=== PATIENT | male | born 1950 | race Caucasian/White ===

== ENCOUNTER 2019-07-22 21:41 | Emergency (ER) | payer OTHER, MEDICARE, BC ==
[~2019-07-22] VITALS: Ht 185.4 cm; Wt 81.6 kg
[2019-07-22 22:49] VITALS: BP 129/70
[2019-07-22] MEDS ORDERED: HYDR-3164 PO (23:02)
[2019-07-22] MEDS ORDERED: METH-38 PO (23:02)
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
== END 2019-07-22 23:10 | disposition home or self-care (01) ==
LOC: ER 21:41
DX: G89.18 Other acute postprocedural pain (principal); M25.572 Pain in left ankle and joints of left foot; I10 Essential (primary) hypertension
CPT/HCPCS: 99284

== ENCOUNTER → 2019-08-31 | Outpatient (CLI) | payer MEDICARE ==
[2019-07-31 11:00] VITALS: BP 141/82
[~2019-08-31] MED LIST: HYDR-3164 PO; METH-38 PO; PANT20TA2 PO; RIVA15TA PO
[2019-08-31 13:17] LABS: PROTHROMBIN TIME PATIENT 23.1 SEC (11.7-14.0)
--- NOTE | 2019-08-31 14:55 | RAD ---
VENOUS LOWER EXTREMITY LEFT 08/31/2019 1:00 PM Clinical Information: History of left lower extremity deep venous thrombosis. Comparison: Left lower extremity venous ultrasound 07/30/2019. Technique: Multiple grayscale, color Doppler, and spectral Doppler sonographic images of the lower extremity venous structures were obtained. Findings: Common femoral vein and greater saphenous vein are patent at the saphenofemoral junction. There is persistent occlusive thrombus involving a paired left superficial femoral vein extending to the popliteal vein. There is nonocclusive thrombus in the distal left popliteal vein. Persistent nonocclusive thrombus and a left posterior tibial vein. Peroneal veins are not visualized. IMPRESSION: Persistent left lower extremity DVT with thrombus now visualized in the distal left popliteal vein, previously extending into the proximal left popliteal vein. Electronically signed by: Tatiana Stratton MD (08/31/2019 2:52 PM) [facility]
== END | disposition home or self-care (01) ==
LOC: US 12:34
PROVIDERS: ATTEND Physician Assistant
DX: I82.502 Chronic embolism and thrombosis of unspecified deep veins of left lower extremity (principal)
CPT/HCPCS: 36415; 85610; 93971

== ENCOUNTER → 2019-10-27 | Outpatient (CLI) | payer MEDICARE ==
[2019-07-31 11:00] VITALS: BP 141/82
--- NOTE | 2019-10-27 08:56 | RAD ---
LEFT LEG VENOUS DOPPLER STUDY: Clinical indications: Left leg swelling and pain. History of DVT on the left leg. Follow-up study. COMPARISON: August 31, 2019. Findings: Duplex sonography (including burris scale evaluation and color flow and waveform spectral analysis) of the proximal aspect of the greater saphenous vein and the proximal aspect of the profunda femoral vein and the entire length of the common femoral and superficial femoral and popliteal veins and the tibioperoneal trunk and the proximal aspect of the posterior tibial and peroneal veins of the left leg was performed. The left common femoral vein and proximal greater saphenous vein and proximal profunda femoral vein are patent without thrombosis. There is continued occlusive thrombosis within one of the paired left superficial femoral veins extending throughout it's length and extends into the popliteal vein which is now completely occluded throughout and the extends into one of the paired proximal left posterior tibial veins which is now completely occluded with thrombosis proximally. There is partial nonocclusive thrombosis within the distal portion of this vein. The peroneal veins are not visualized. Impression: Persistent occlusive thrombosis of the left lower extremity. The entire length of the left popliteal vein and the proximal aspect of one of the paired left posterior tibial veins are now completely occluded with thrombosis. Electronically signed by: Dwayne Smith MD (10/27/2019 8:53 AM) [facility]
== END | disposition home or self-care (01) ==
LOC: US 07:53
PROVIDERS: ATTEND Physician Assistant
DX: I82.502 Chronic embolism and thrombosis of unspecified deep veins of left lower extremity (principal)
CPT/HCPCS: 93971

== ENCOUNTER → 2019-11-12 | Outpatient (CLI) | payer MEDICARE ==
[2019-07-31 11:00] VITALS: BP 141/82
--- NOTE | 2019-11-12 16:35 | CARD ---
MR#: [id number] Date of Study: 11/12/2019 Ordering Physician: MAYRA NICHOLSON, Referring Physician: MAYRA NICHOLSON Tech: Sharri Rice RDCS APPROVED REPORT EXAM: Two-dimensional and M-mode echocardiogram with Doppler and color Doppler. Other Information Quality : Good INDICATION DVT 2D DIMENSIONS RVDd3.5 (2.9-3.5cm)Left Atrium(2D)3.4 (1.6-4.0cm) IVSd1.2 (0.7-1.1cm)Aortic Root(2D)3.3 (2.0-3.7cm) LVDd3.9 (3.9-5.9cm)LVOT Diameter2.2 (1.8-2.4cm) PWd1.1 (0.7-1.1cm)LVDs2.1 (2.5-4.0cm) FS (%) 30.0 %SV52.3 ml LVEF(%)60.0 (>50%) Aortic Valve AoV Peak Lex.135.7cm/sAoV VTI22.3cm AO Peak GR.7.4mmHgLVOT Peak Lex.131.3cm/s LVOT VTI 22.69cmAO Mean GR.4mmHg ANGELICA (VMAX)3.78fx0OGY (VTI)3.80cm2 Mitral Valve MV E Bblzulao91.1cm/sMV DECEL JRJW459ne MV A Qydonjqj90.6cm/sMV QOY29ix E/A Ratio0.7MVA (PHT)2.23cm2 TDI E/Lateral E'4.6E/Medial E'10.0 Pulmonary Vein S1 Wxmeuchk04.3cm/sD2 Erlxoqim14.5cm/s LEFT VENTRICLE The left ventricle is normal size. There is mild concentric left ventricular hypertrophy. The left ve ntricular systolic function is normal. The Ejection Fraction is 60-65%. There is normal LV segmental wall motion. Transmitral Doppler flow pattern is Grade I-abnormal relaxation pattern. RIGHT VENTRICLE The right ventricle is normal size. The right ventricular systolic function is normal. ATRIA The left atrium size is normal. The right atrium size is normal. The interatrial septum is intact wit h no evidence for an atrial septal defect or patent foramen ovale as noted on 2-D or Doppler imaging. AORTIC VALVE The aortic valve is calcified but opens well. Doppler and Color Flow revealed no significant aortic r egurgitation. There is no significant aortic valvular stenosis. MITRAL VALVE The mitral valve is normal in structure and function. There is no evidence of mitral valve prolapse. There is no mitral valve stenosis. Doppler and Color-flow revealed trace mitral regurgitation. TRICUSPID VALVE The tricuspid valve is normal in structure and function. Doppler and Color Flow revealed trace tricus pid regurgitation. There is no tricuspid valve stenosis. PULMONIC VALVE The pulmonic valve is not well visualized. Doppler and Color Flow revealed no pulmonic valvular regur gitation. There is no pulmonic valvular stenosis. GREAT VESSELS The aortic root is normal in size. The ascending aorta is normal in size. The IVC is normal in size a nd collapses >50% with inspiration. PERICARDIAL EFFUSION There is no evidence of significant pericardial effusion. Critical Notification Critical Value: No <Conclusion> The left ventricular systolic function is normal. The Ejection Fraction is 60-65%. There is normal LV segmental wall motion. Transmitral Doppler flow pattern is Grade I-abnormal relaxation pattern. Trace mitral regurgitation. Trace tricuspid regurgitation. There is no evidence of significant pericardial effusion. Signed by : Mayra Nicholson, Electronically Approved : 11/12/2019 16:35:24
--- NOTE | 2019-11-12 18:20 | RAD ---
MR#: [id number] Date of Study: 11/12/2019 Ordering Physician: MAYRA NICHOLSON, Referring Physician: MAYRA NICHOLSON, Tech: Evi Santos RDMS, RVT, RTR APPROVED REPORT Patient Location : OUT-PATIENT Indications Lower Extremity Edema : History of DVT Skin Changes Greater Saphenous Veins (GSV) Significant venous relux noted in the LEFT GSV at the following levels : Superficial Femoral Junction , Proximal Thigh, Mid Thigh, Distal Thigh, Proximal Calf, Mid Calf, Distal Calf Lesser Saphenous Veins (LSV) Significant venous reflux is noted in the Left LSV. Leftt Thigh extension noted : Yes Findings Grayscale images of the left great saphenous vein do not reveal any obvious evidence of thrombus. Inc idental note is made of a left leg DVT. This is known per prior studies. The left great saphenous vein measures 6.9 mm and has a maximum reflux time of 2 seconds. The left lesser saphenous vein has thrombus noted at the level of the saphenofemoral junction. There is also reflux of approximately 3 seconds in the left lesser saphenous vein measuring approximately 5 .3 mm in largest diameter. There is also a mid thigh extension measuring 6.4 mm with a reflux time of 1.5 seconds. Critical Notification Critical Value: No <Conclusion> 1. Positive for reflux in the left greater and lesser saphenous veins with thrombus noted in the supe rficial venous system as well. Signed by : Nate Combs, Electronically Approved : 11/12/2019 17:52:50
== END | disposition home or self-care (01) ==
LOC: US 12:42
PROVIDERS: ATTEND Internal Medicine Cardiovascular Disease
DX: I82.812 Embolism and thrombosis of superficial veins of left lower extremity (principal); I35.8 Other nonrheumatic aortic valve disorders
CPT/HCPCS: 93306; 93971

== ENCOUNTER → 2019-12-30 | Outpatient (CLI) | payer MEDICARE ==
[2019-07-31 11:00] VITALS: BP 141/82
--- NOTE | 2019-12-30 11:54 | RAD ---
MR#: [id number] Date of Study: 12/30/2019 Ordering Physician: MAYRA NICHOLSON, Referring Physician: MAYRA NICHOLSON, Tech: Tra Schreiber MBA, RDMS, RVT, RDCS, RTR APPROVED REPORT Left Lower Extremity Venous Study for DVT Patient Location: OUT-PATIENT Indications POST VENASEAL GSV ANDD LSV Vein Imaging (Left) CFV (L): Compressible SFJ (L): Compressible FEM (L): Compressible POP (L): Non-Compressible DFV (L): Compressible PTV (L): Spontaneous GSV (L): Absent Flow SSV (L): Absent Flow Peroneals (L): Spontaneous Doppler Evaluation (Left) CFV (L):Spontaneous POP (L):Occlusive Thrombus Findings Grayscale images of the left lower extremity deep veins were obtained and this reveals patent common femoral and proximal and mid superficial femoral veins. There is color Doppler flow noted in the dist al superficial femoral vein and popliteal vein but there is a chronic appearing nonocclusive thrombus . There is spontaneous flow below the knee in the peroneal veins. The left GSV and left LSV are occluded consistent with recent ablation history. No extension of throm bus is noted into the deep veins from this recent procedure. Critical Notification Critical Value: No <Conclusion> 1. Successful ablation of the left greater and lesser saphenous veins 2. Persistent thrombus in the popliteal and distal superficial femoral vein which is nonocclusive in nature. This finding is known from a previous ultrasound in October 2019. Signed by : Nate Combs, Electronically Approved : 12/30/2019 11:54:10
== END | disposition home or self-care (01) ==
LOC: US 10:11
PROVIDERS: ATTEND Internal Medicine Cardiovascular Disease
DX: M79.89 Other specified soft tissue disorders (principal); I82.432 Acute embolism and thrombosis of left popliteal vein; I87.2 Venous insufficiency (chronic) (peripheral)
CPT/HCPCS: 93971

== ENCOUNTER → 2020-04-22 | Outpatient (CLI) | payer MEDICARE ==
[2019-07-31 11:00] VITALS: BP 141/82
[~2020-04-22] MED LIST changes: +CALC500T30 PO; +CHOL500050 PO; +CYAN50008 PO; +LOSA100T14 PO; +OXYC-325 PO; +WARF6TAB47 PO
== END ==
LOC: LAB 14:19
PROVIDERS: ATTEND Surgery
DX: Z01.818 Encounter for other preprocedural examination (principal); Z11.59 Encounter for screening for other viral diseases; K42.9 Umbilical hernia without obstruction or gangrene
CPT/HCPCS: C9803; U0003; 36415

== ENCOUNTER → 2020-04-22 | Outpatient (CLI) | payer MEDICARE ==
[2019-07-31 11:00] VITALS: BP 141/82
[~2020-04-22] MED LIST changes: -CALC500T30 PO; -CHOL500050 PO; -CYAN50008 PO; -LOSA100T14 PO; -OXYC-325 PO; -WARF6TAB47 PO
--- NOTE | 2020-04-22 16:39 | RAD ---
Exam: VENOUS LOWER EXTREMITY LEFT Indication: Left leg DVT follow-up, history of greater saphenous venoseal Technique: Color-flow and pulsed wave duplex ultrasound with compression of venous structures of the left lower extremity. Comparison: Left leg DVT study dated 12/30/2019. Findings: Duplex ultrasound with compression of the deep venous structures of the left lower extremity from the common femoral vein through the distal superficial femoral vein is negative for DVT. Nonocclusive thrombus is noted within the left popliteal vein. The posterior tibial and peroneal veins are segmentally visualized and patent where seen. Normal venous waveforms and augmentation are noted throughout. Impression: Nonocclusive left popliteal vein thrombus, possibly chronic. No other evidence for DVT in the left lower extremity. Electronically signed by: Sagar Manning MD (04/22/2020 4:36 PM) [id number]
== END | disposition home or self-care (01) ==
LOC: US 14:06
PROVIDERS: ATTEND Internal Medicine Cardiovascular Disease
DX: I82.432 Acute embolism and thrombosis of left popliteal vein (principal)
CPT/HCPCS: 93971

== ENCOUNTER 2020-04-28 06:38 | Day surgery (SDC) | payer MEDICARE ==
[~2020-04-28] VITALS: Ht 190.5 cm; Wt 85.5 kg
[~2020-04-28 06:38] MED LIST changes: +ACETAMINOPHEN 500 MG TABLET PO PRN; +CALC500T30 PO; +CHOL500050 PO; +CYAN50008 PO; +LOSA100T14 PO; +WARF6TAB47 PO
[2020-04-28] MEDS ORDERED: ONDANSETRON PF 4 MG/2 ML VIAL. ONE (06:57)
[2020-04-28] MEDS ORDERED: ROCURONIUM 50 MG/5 ML VIAL. ONE (06:57)
[2020-04-28] MEDS ORDERED: LIDOCAINE 2% PF 5 ML VIAL. ONE (06:57)
[2020-04-28] MEDS ORDERED: DEXAMETHASONE SOD PHOS 20 MG/5 ML VIAL. ONE (06:57)
[2020-04-28] MEDS ORDERED: PROPOFOL 10 MG/ML (20ML) VIAL. IV ONE (06:57)
[2020-04-28] MEDS ORDERED: fentaNYL PF VIAL 100 MCG/2 ML VIAL IV PRN ×2 (07:00)
[2020-04-28] MEDS ORDERED: ONDANSETRON PF 4 MG/2 ML VIAL. IV PRN (07:00)
[2020-04-28] MEDS ORDERED: HYDROmorphone 2 MG/ML VIAL IV PRN (07:00)
[2020-04-28] MEDS ORDERED: MORPHINE SULFATE 2 MG/ML VIAL. IV PRN (07:00)
[2020-04-28] MEDS ORDERED: PROCHLORPERAZINE 10 MG/2 ML VIAL. IV PRN (07:00)
[2020-04-28] MEDS: IV RINGERS,LACTATED 1000ML 1,000 ML IV SCH ×2 (07:07→07:08)
[2020-04-28] MEDS ORDERED: BUPIVACAINE-EPI 0.25%-1:200000 MPF 30 ML VIAL. ONE (07:27)
[2020-04-28] MEDS ORDERED: MINERAL OIL for SURGERY 10 ML VIAL. MC ONE (07:27)
[2020-04-28] MEDS ORDERED: fentaNYL PF VIAL 100 MCG/2 ML VIAL ONE (07:45)
[2020-04-28] MEDS ORDERED: MIDAZOLAM HCL/PF 2 MG/2 ML VIAL. ONE (07:45)
[2020-04-28 07:53] LABS: PROTHROMBIN TIME PATIENT 16.9 SEC (11.7-14.0)
[2020-04-28] MEDS ORDERED: GLYCOPYRROLATE 1 MG/5 ML VIAL. ONE (09:17)
[2020-04-28] MEDS ORDERED: NEOSTIGMINE METHYLSULFATE 5 MG/5 ML SYRINGE. ONE (09:17)
--- NOTE | 2020-04-28 09:21 | PDOC4 ---
Operative Note Operative Note Date: 04/28/2020 at 918 Preoperative diagnosis: Incarcerated umbilical hernia Postoperative diagnosis: Same Procedure: Robotic assisted laparoscopic umbilical hernia repair with mesh Surgeon: Ganesh Specimen: None Dictation: Patient is a 69-year-old gentleman with a bulge at his umbilicus is been getting larger and more painful over the last several months. Procedure of robotic assisted laparoscopic umbilical hernia repair with mesh was explained to the patient detail was benefits were also discussed including bleeding infection alternatives to this procedure also discussed with the patient who seemed to understand and gave both verbal and written consent to have the procedure performed. Patient was taken to the operating room placed in supine position general anesthesia was initiated once patient was sleeping in bed his abdomen was prepped and draped usual sterile fashion using ChloraPrep and area in the left upper quadrant was injected quarter percent Marcaine with epinephrine incision was made 11 blade scalpel and a 5 5 mm Visiport was placed under direct visualization into the abdomen creating pneumoperitoneum once this complete 5 mm camera was placed within the abdomen and inspected it was noted that extremely large bladder so at this point a Herrera catheter was placed to reduce his bladder he had over 250 cc of urine within his bladder. A da Blas port was placed in the left midabdomen a second da Blas port was placed in the left lower abdomen and the 5 mm Visiport was changed out for da Blas port in the left upper quadrant. The da Blas robot was brought in and docked all port sites surgeon went to the robotic console using a grasper and Endo Malaika scissors the incarcerated omentum within the hernia defect was reduced hernia sac was reduced and the hernia defect was closed with a running nonabsorbable 2 OV lock suture. Ventral light ST mesh was then placed over the defect this was sewn in place with a absorbable V lock suture and the peritoneum was then closed over the mesh with the nonabsorbable V lock suture. All ports were removed the ventral robot was undocked and removed from the patient port sites were all closed with 4-0 subcuticular Monocryl Mastisol Steri-Strips and island dressings were applied. Patient was awakened extubated in the operating room taken to recovery in stable condition all sponge instrument needle counts listed estimated blood loss 5 mL. GEOFF BERNAL MD Apr 28, 2020 09:21
[2020-04-28] MEDS ORDERED: PHENYLEPHRINE in 0.9% NACL PF 1 MG/10 ML SYRINGE. IV ONE (09:22)
[2020-04-28] MEDS ORDERED: ePHEDrine PF IN SALINE 50 MG/10 ML SYRINGE. IV ONE (09:22)
[2020-04-28] MEDS ORDERED: SEVOFLURANE 61 TO 120 MINUTES. IH ONE (09:22)
--- NOTE | 2020-04-28 09:24 | DISCH ---
DISCHARGE INSTRUCTIONS Condition on Discharge Condition on Discharge: Stable Activity After Discharge Activity Instructions for Disc: Activity as tolerated Other activity instructions: No lifting more than 20 pounds for 2 weeks Diet after Discharge Diet after Discharge: Regular Wound Incision Care Wound/Incision Care: Other, see below Other wound/incision instructi: May shower in 24 hours Contacting the after DC Call your doctor for: If your condition worsens Follow-Up Follow up with: Dr. Bernal in 2 weeks GEOFF BERNAL MD Apr 28, 2020 09:24
[2020-04-28] MEDS ORDERED: OXYC-325 PO (10:08)
[2020-04-28] MEDS ORDERED: oxyCODONE/APAP 5/325 1 TAB TABLET PO ONE ×2 (10:15)
[2020-04-28 10:44] VITALS: BP 127/65
== END 2020-04-28 11:26 | disposition home or self-care (01) ==
LOC: SURG 06:38
PROVIDERS: ATTEND Surgery
DX: K42.0 Umbilical hernia with obstruction, without gangrene (principal); I10 Essential (primary) hypertension; Z79.899 Other long term (current) drug therapy; Z79.01 Long term (current) use of anticoagulants; Z86.718 Personal history of other venous thrombosis and embolism; Z98.42 Cataract extraction status, left eye; Z98.41 Cataract extraction status, right eye; Z96.1 Presence of intraocular lens
CPT/HCPCS: 36415; 49653; 85610; 85730; A7015; C1781; J1100; J2250; J2370; J2405; J2704; J2710; J3010; J3490; J7120; S2900

== ENCOUNTER 2020-05-20 10:11 | Inpatient (IN) | payer MEDICARE ==
[~2020-05-20] VITALS: Ht 185.4 cm; Wt 81.0 kg
[~2020-05-20 10:11] MED LIST changes: -ACETAMINOPHEN 500 MG TABLET PO PRN; +OXYC-325 PO
--- NOTE | 2020-05-20 11:54 | RAD ---
EXAM: TIBIA FIBULA LEFT 05/20/2020 10:41 AM CLINICAL INDICATION:Left leg swelling, recent fracture COMPARISON:Left tibia and fibula radiograph 04/03/2020 TECHNIQUE:AP and lateral views of the left tibia and fibula FINDINGS:An intramedullary nail and interlocking screws traverse a distal tibial diaphyseal fracture. Hardware is intact without evidence of loosening. There has been further healing of the distal tibial fracture with increased callus remodeling and further obscuration of fracture lines. An oblique healing distal fibular fracture is also unchanged in alignment. There is mild diffuse subcutaneous edema. Alignment at the knee and ankles grossly unchanged. IMPRESSION:Healing internally fixed distal tibial fracture and healing distal fibular fracture, unchanged in alignment. Diffuse subcutaneous edema. Electronically signed by: Joanie Ruiz MD (05/20/2020 11:52 AM) [id number]
[2020-05-20] MEDS ORDERED: VANCOMYCIN 1GM IVPB FOR OMNI 250 ML IV ONE (12:45)
[2020-05-20 12:57] LABS: BASO % 0 % (0-3); EOS # 0.1 x10^3/uL (0.0-0.7); EOS % 1 % (0-3); HEMATOCRIT 41.3 % (39.0-53.0); HEMOGLOBIN 14.4 g/dL (13.0-17.5); LYMPH % 14 % (24-48); MEAN CORPUSCULAR HEMOGLOBIN 34 pg (25-35); MEAN CORPUSCULAR HGB CONC 35 g/dL (31-37); MEAN CORPUSCULAR VOLUME 97 fL (79-100); MONO # 0.6 x10^3/uL (0.0-1.1); MONO % 9 % (0-9); NEUT # 5.4 x10^3/uL (1.8-7.7); NEUT % 76 % (31-73); PLATELET COUNT 255 x10^3/uL (140-400); RED BLOOD COUNT 4.28 x10^6/uL (4.30-5.70); RED CELL DISTRIBUTION WIDTH 13.6 % (11.5-14.5); WHITE BLOOD COUNT 7.1 x10^3/uL (4.0-11.0)
[2020-05-20 13:10] LABS: CALCIUM 8.3 mg/dL (8.5-10.1); CREATININE 2.1 mg/dL (0.7-1.3); GFR 31.7; POTASSIUM 4.4 mmol/L (3.5-5.1)
[2020-05-20 13:18] LABS: ALBUMIN 3.4 g/dL (3.4-5.0); TOTAL BILIRUBIN 0.9 mg/dL (0.2-1.0); TOTAL PROTEIN 6.7 g/dL (6.4-8.2)
--- NOTE | 2020-05-20 13:40 | RAD ---
Left lower extremity venous doppler ultrasound History: Left leg swelling Comparison: April 22, 2020 Findings: Multiple grayscale, color, and duplex spectral analysis sonographic images were acquired of the left lower extremity veins to evaluate for the presence of DVT. There is normal phasicity. There is again abnormal echogenicity of the left popliteal vein, some flow demonstrated. Remainder of interrogated left lower extremity veins are patent with color flow and phasicity. There is some edema of the soft tissues. There is left groin lymph node up to 2.6 x 0.7 x 2.5 cm. Impression: 1. There is again nonocclusive thrombus in the left popliteal vein. Electronically signed by: Bradly Rowland MD (05/20/2020 1:37 PM) [id number]
[2020-05-20] MEDS ORDERED: ONDANSETRON PF 4 MG/2 ML VIAL. IV PRN (14:30)
--- NOTE | 2020-05-20 15:08 | NUR ---
Arrived on the unit by w/c from ER. Alert and oriented x's 4. Left leg swollen and red. See photo. States beltran when touched. No c/o discomfort on ambulation. Oriented to room and controls. Side rails up x's 2 with call light in reach. Daughter at bedside.
[2020-05-20 15:10] VITALS: BP 139/88
[2020-05-20] MEDS ORDERED: TAMS0.4C97 PO (16:11)
[2020-05-20] MEDS ORDERED: OMEG1CAP50 PO (16:11)
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
[2020-05-20] MEDS ORDERED: IBUPROFEN 200 MG TABLET. PO PRN (17:45)
[2020-05-20 19:00] VITALS: BP 140/82
[2020-05-20] MEDS ORDERED: IBUPROFEN 200 MG TABLET. PO ONE (22:00)
[2020-05-20 23:00] VITALS: BP 144/81
[2020-05-21 03:00] VITALS: BP 128/70
[2020-05-21 06:00] LABS: GFR 33.5; POTASSIUM 4.1 mmol/L (3.5-5.1)
[2020-05-21 07:00] VITALS: BP 145/84
--- NOTE | 2020-05-21 08:57 | PDOC2 ---
CONSULT Date of Consult Date of Consult DATE: 05/21/20 TIME: 08:50 Reason for Consult Reason for Consult: left leg infection Referring Physician Referring Physician: Rafi Identification/Chief Complaint Chief Complaint Left leg pain Source Source: Chart review, Patient History of Present Illness Reason for Visit: Patient is a very pleasant 69-year-old who I been following for a year for his left tib-fib fracture treated with an IM nail in [place] about 1 year ago. The fracture was closed. He developed a blood clot shortly after that and has been on Coumadin up until his recent hernia surgery. He did take a 10 mg Coumadin 1 day ago. He had not been on any Coumadin for the past several weeks however. He tells me in the past couple days he is noticed increasing pain redness and swelling over his medial fracture site. He had a small cut that was bleeding at this area prior. He was out in [place] earlier this week, and noticed the increasing problems develop there. He denies the pain is really bad, he rates it as a 1 or 2 at rest, and up to 3 while walking, he describes it as burning. It does not radiate. No fevers no chills, no chest pain, no trouble breathing Past Medical History Cardiovascular: HTN Pulmonary: No pertinent hx Past Surgical History Past Surgical History: Other (Left ankle peroneal repair, hernia, CRIMN left tib/fib 2019) Family History Family History: Hypertension Social History No ALCOHOL: none Current Problem List Problem List Problems Medical Problems: (1) Left leg cellulitis Status: Acute Current Medications Current Medications Current Medications Vancomycin HCl 250 ml @ 250 mls/hr 1X ONCE IV Last administered on 05/20/20at 13:21; Start 05/20/20 at 12:45; Stop 05/20/20 at 13:44; Status DC Ondansetron HCl (Zofran) 4 mg PRN Q8HRS PRN IV NAUSEA/VOMITING; Start 05/20/20 at 14:30; Stop 05/21/20 at 14:29 Cefazolin Sodium/ Dextrose 50 ml @ 100 mls/hr 1X ONCE IV Last administered on 05/20/20at 14:38; Start 05/20/20 at 14:30; Stop 05/20/20 at 14:59; Status DC Ibuprofen (Motrin) 600 mg QID PRN PO INFLAMMATION; Start 05/20/20 at 17:45; Status UNV Calcium Carbonate/ Glycine (Oscal) 500 mg DAILY PO ; Start 05/21/20 at 09:00 Fish Oil (Fish Oil) 1,000 mg DAILY PO ; Start 05/21/20 at 09:00 Tamsulosin HCl (Flomax) 0.4 mg DAILY PO ; Start 05/21/20 at 09:00 Vitamin D (Vitamin D3) 1,000 unit DAILY PO ; Start 05/21/20 at 09:00 Cyanocobalamin (Vitamin B-12) 5,000 mcg DAILY PO ; Start 05/21/20 at 09:00 Losartan Potassium (Cozaar) 100 mg DAILY PO ; Start 05/21/20 at 09:00 Ibuprofen (Motrin) 600 mg 1X ONCE PO Last administered on 05/20/20at 22:53; Start 05/20/20 at 22:00; Stop 05/20/20 at 22:01; Status DC Active Scripts Active Reported Fish Oil 1,000 Mg Softgel ([place]-3 Fatty Acids/Fish Oil) 1 Each Capsule 1 Cap PO DAILY 30 Days Flomax (Tamsulosin Hcl) 0.4 Mg Cap.er.24h 0.4 Mg PO DAILY Vitamin D3 (Cholecalciferol (Vitamin D3)) 1,250 Mcg Capsule 1,000 Mcg PO DAILY Calcium (Calcium Carbonate) 500 Mg Tablet 500 Mg PO DAILY Vitamin B12 (Cyanocobalamin (Vitamin B-12)) 5,000 Mcg Tab.rapdis 5,000 Mcg PO DAILY Losartan Potassium 100 Mg Tablet 100 Mg PO DAILY Allergies Allergies: Coded Allergies: No Known Drug Allergies (Unverified , 04/28/20) ROS General: No: Chills, Night Sweats, Fatigue, Malaise, Appetite, Other PSYCHOLOGICAL ROS: No: Anxiety, Behavioral Disorder, Concentration difficultie, Decreased libido, Depression, Disorientation, Hallucinations, Hostility, Irritablity, Memory difficulties, Mood Swings, Obsessive thoughts, Physical abuse, Sexual abuse, Sleep disturbances, Suicidal ideation, Other Eyes: No Blurry vision, No Decreased vision, No Double vision, No Dry eyes, No Excessive tearing, No Eye Pain, No Itchy Eyes, No Loss of vision, No Photophobia, No Scotomata, No Uses contacts, No Uses glasses, No Other HEENT: No: Heacaches, Visual Changes, Hearing change, Nasal congestion, Nasal discharge, Oral lesions, Sinus pain, Sore Throat, Epistaxis, Sneezing, Snoring, Tinnitus, Vertigo, Vocal changes, Other ALLERGY AND IMMUNOLOGY: No: Hives, Insect Bite Sensitivity, Itchy/Watery Eyes, Nasal Congestion, Post Nasal Drip, Seasonal Allergies, Other Hematological and Lymphatic: YES: Blood Clots ENDOCRINE: No: Breast Changes, Galactorrhea, Hair Pattern Changes, Hot Flashes, Malaise/lethargy, Mood Swings, Palpitations, Polydipsia/polyuria, Skin Changes, Temperature Intolerance, Unexpected Weight Changes, Other Respiratory: No: Cough, Hemoptysis, Orthopnea, Pleuritic Pain, Shortness of breath, SOB with excertion, Sputum Changes, Stridor, Tachypnea, Wheezing, Other Cardiovascular: No Chest Pain, No Palpitations, No Orthopnea, No Paroxysmal Noc. Dyspnea, No Edema, No Lt Headedness, No Other Gastrointestinal: No Nausea, No Vomiting, No Abdominal Pain, No Diarrhea, No Constipation, No Melena, No Hematochezia, No Other Genitourinary: No Dysuria, No Frequency, No Incontinence, No Hematuria, No Retention, No Discharge, No Urgency, No Pain, No Flank Pain, No Other, No , No , No , No , No , No , No Musculoskeletal: Yes Muscle Pain Neurological: No Behavorial Changes, No Bowel/Bladder ControlChng, No Confusion, No Dizziness, No Gait Disturbance, No Headaches, No Impaired Coord/balance, No Memory Loss, No Numbness/Tingling, No Seizures, No Speech Problems, No Tremors, No Visual Changes, No Weakness, No Other Skin: No Dry Skin, No Eczema, No Hair Changes, No Lumps, No Mole Changes, No Mottling, No Nail Changes, No Pruritus, No Rash, No Skin Lesion Changes, No Other, No Acne Physical Exam General: Alert, Oriented X3 HEENT: Atraumatic, EOMI Lungs: Other (Respirations are unlabored with symmetric chest rise) Heart: Regular rate Abdomen: Soft, No tenderness Extremities: No edema, Normal pulses Skin: No rashes Neuro: Normal speech, Strength at 5/5 X4 ext, Sensation intact Psych/Mental Status: Mental status NL, Mood NL MUSCULOSKELETAL: Other (Examination of his left lower extremity reveals surgical incisions that have healed and are old consistent with a surgical history. He has about a half palm sized area of fluctuance over his medial fracture site and about a hand sized area of surrounding erythema. Edema is present from the site distally as well.) Vitals VITALS Vital Signs Date Time Temp Pulse Resp B/P (MAP) Pulse Ox O2 Delivery O2 Flow Rate FiO2 05/21/20 07:00 98.3 73 16 145/84 (104) 97 Room Air 98.3 Labs Labs Laboratory Tests Test 05/20/20 12:45 05/21/20 04:08 White Blood Count 7.1 x10^3/uL (4.0-11.0) Red Blood Count 4.28 x10^6/uL (4.30-5.70) Hemoglobin 14.4 g/dL (13.0-17.5) Hematocrit 41.3 % (39.0-53.0) Mean Corpuscular Volume 97 fL (79-100) Mean Corpuscular Hemoglobin 34 pg (25-35) Mean Corpuscular Hemoglobin Concent 35 g/dL (31-37) Red Cell Distribution Width 13.6 % (11.5-14.5) Platelet Count 255 x10^3/uL (140-400) Neutrophils (%) (Auto) 76 % (31-73) Lymphocytes (%) (Auto) 14 % (24-48) Monocytes (%) (Auto) 9 % (0-9) Eosinophils (%) (Auto) 1 % (0-3) Basophils (%) (Auto) 0 % (0-3) Neutrophils # (Auto) 5.4 x10^3/uL (1.8-7.7) Lymphocytes # (Auto) 1.0 x10^3/uL (1.0-4.8) Monocytes # (Auto) 0.6 x10^3/uL (0.0-1.1) Eosinophils # (Auto) 0.1 x10^3/uL (0.0-0.7) Basophils # (Auto) 0.0 x10^3/uL (0.0-0.2) Sodium Level 140 mmol/L (136-145) 141 mmol/L (136-145) Potassium Level 4.4 mmol/L (3.5-5.1) 4.1 mmol/L (3.5-5.1) Chloride Level 104 mmol/L (98-107) 105 mmol/L (98-107) Carbon Dioxide Level 27 mmol/L (21-32) 23 mmol/L (21-32) Anion Gap 9 (6-14) 13 (6-14) Blood Urea Nitrogen 23 mg/dL (8-26) 23 mg/dL (8-26) Creatinine 2.1 mg/dL (0.7-1.3) 2.0 mg/dL (0.7-1.3) Estimated GFR (Cockcroft-Gault) 31.7 33.5 BUN/Creatinine Ratio 11 (6-20) Glucose Level 96 mg/dL (70-99) 89 mg/dL (70-99) Calcium Level 8.3 mg/dL (8.5-10.1) 8.0 mg/dL (8.5-10.1) Total Bilirubin 0.9 mg/dL (0.2-1.0) Aspartate Amino Transf (AST/SGOT) 20 U/L (15-37) Alanine Aminotransferase (ALT/SGPT) 20 U/L (16-63) Alkaline Phosphatase 67 U/L (46-116) Total Protein 6.7 g/dL (6.4-8.2) Albumin 3.4 g/dL (3.4-5.0) Albumin/Globulin Ratio 1.0 (1.0-1.7) Laboratory Tests Test 05/20/20 12:45 05/21/20 04:08 White Blood Count 7.1 x10^3/uL (4.0-11.0) Red Blood Count 4.28 x10^6/uL (4.30-5.70) Hemoglobin 14.4 g/dL (13.0-17.5) Hematocrit 41.3 % (39.0-53.0) Mean Corpuscular Volume 97 fL (79-100) Mean Corpuscular Hemoglobin 34 pg (25-35) Mean Corpuscular Hemoglobin Concent 35 g/dL (31-37) Red Cell Distribution Width 13.6 % (11.5-14.5) Platelet Count 255 x10^3/uL (140-400) Neutrophils (%) (Auto) 76 % (31-73) Lymphocytes (%) (Auto) 14 % (24-48) Monocytes (%) (Auto) 9 % (0-9) Eosinophils (%) (Auto) 1 % (0-3) Basophils (%) (Auto) 0 % (0-3) Neutrophils # (Auto) 5.4 x10^3/uL (1.8-7.7) Lymphocytes # (Auto) 1.0 x10^3/uL (1.0-4.8) Monocytes # (Auto) 0.6 x10^3/uL (0.0-1.1) Eosinophils # (Auto) 0.1 x10^3/uL (0.0-0.7) Basophils # (Auto) 0.0 x10^3/uL (0.0-0.2) Sodium Level 140 mmol/L (136-145) 141 mmol/L (136-145) Potassium Level 4.4 mmol/L (3.5-5.1) 4.1 mmol/L (3.5-5.1) Chloride Level 104 mmol/L (98-107) 105 mmol/L (98-107) Carbon Dioxide Level 27 mmol/L (21-32) 23 mmol/L (21-32) Anion Gap 9 (6-14) 13 (6-14) Blood Urea Nitrogen 23 mg/dL (8-26) 23 mg/dL (8-26) Creatinine 2.1 mg/dL (0.7-1.3) 2.0 mg/dL (0.7-1.3) Estimated GFR (Cockcroft-Gault) 31.7 33.5 BUN/Creatinine Ratio 11 (6-20) Glucose Level 96 mg/dL (70-99) 89 mg/dL (70-99) Calcium Level 8.3 mg/dL (8.5-10.1) 8.0 mg/dL (8.5-10.1) Total Bilirubin 0.9 mg/dL (0.2-1.0) Aspartate Amino Transf (AST/SGOT) 20 U/L (15-37) Alanine Aminotransferase (ALT/SGPT) 20 U/L (16-63) Alkaline Phosphatase 67 U/L (46-116) Total Protein 6.7 g/dL (6.4-8.2) Albumin 3.4 g/dL (3.4-5.0) Albumin/Globulin Ratio 1.0 (1.0-1.7) Images Images X-rays were interpreted by myself and compared to prior x-rays. I do think there is been increased consolidation of his fracture site. Assessment/Plan Assessment/Plan Today, I did discuss with Ze the different options including IV antibiotics versus I&D and subsequent antibiotics. We discussed the pros and cons of each. I recommended that we proceed with an I&D given the size of this abscess and he agreed. We discussed possible sequela of infection which can be difficult to predict including need for reoperations, possible hardware removal and delivery device for intramedullary antibiotics if needed. Given his history of a local skin cut and the superficial nature of this today, I do not think that the aggressive treatment of hardware removal and placement of an intramedullary cement andrew is necessary at this time. I discussed this with him and he is in agreements as well. We will plan on surgery tomorrow morning, we will await n.p.o. status and COVID testing. JOHNATHON LIM II, MD May 21, 2020 08:57
[2020-05-21] MEDS: CYANOCOBALAMIN (VITAMIN B-12) 1,000 MCG TABLET. PO SCH (09:05)
[2020-05-21] MEDS: CHOLECALCIFEROL (VITAMIN D3) 1,000 UNIT TABLET PO SCH (09:05)
[2020-05-21] MEDS: TAMSULOSIN 0.4 MG CAP.ER.24H. PO SCH (09:05)
[2020-05-21] MEDS: OMEGA-3 FATTY ACIDS/FISH OIL 1,000 MG CAPSULE. PO SCH (09:06)
[2020-05-21] MEDS: CALCIUM CARBONATE 500 MG TABLET PO SCH (09:06)
[2020-05-21] MEDS: LOSARTAN POTASSIUM 50 MG TABLET. PO SCH (09:06)
--- NOTE | 2020-05-21 10:47 | PDOC ---
Provider Note Provider Note [id number] Justicifation of Admission Dx: Justifications for Admission: Justification of Admission Dx: Yes Cellulitis: Cellulitis LITTLE MCCORD MD May 21, 2020 10:47
[2020-05-21 11:00] VITALS: BP 131/77
--- NOTE | 2020-05-21 11:11 | PDOC ---
Infectious Disease Note Subjective: Subjective Patient seen and examined ID consult dictated Vital Signs: Vital Signs Vital Signs Date Time Temp Pulse Resp B/P (MAP) Pulse Ox O2 Delivery O2 Flow Rate FiO2 05/21/20 09:06 73 145/84 05/21/20 07:00 98.3 16 97 Room Air 98.3 Medications: Inpatient Meds: Current Medications Medications (Trade) Dose Ordered Sig/Juan Diego Start Time Stop Time Status Last Admin Dose Admin Calcium Carbonate/ Glycine (Oscal) 500 mg DAILY 05/21/20 09:00 05/21/20 09:06 500 MG Cefazolin Sodium/ Dextrose 50 ml @ 100 mls/hr 1X ONCE 05/20/20 14:30 05/20/20 14:59 DC 05/20/20 14:38 100 MLS/HR Cyanocobalamin (Vitamin B-12) 5,000 mcg DAILY 05/21/20 09:00 05/21/20 09:05 5,000 MCG Fish Oil (Fish Oil) 1,000 mg DAILY 05/21/20 09:00 05/21/20 09:06 1,000 MG Ibuprofen (Motrin) 600 mg 1X ONCE 05/20/20 22:00 05/20/20 22:01 DC 05/20/20 22:53 600 MG Losartan Potassium (Cozaar) 100 mg DAILY 05/21/20 09:00 05/21/20 09:06 100 MG Ondansetron HCl (Zofran) 4 mg PRN Q8HRS PRN 05/20/20 14:30 05/21/20 14:29 Tamsulosin HCl (Flomax) 0.4 mg DAILY 05/21/20 09:00 05/21/20 09:05 0.4 MG Vancomycin HCl 250 ml @ 250 mls/hr 1X ONCE 05/20/20 12:45 05/20/20 13:44 DC 05/20/20 13:21 250 MLS/HR Vitamin D (Vitamin D3) 1,000 unit DAILY 05/21/20 09:00 05/21/20 09:05 1,000 UNIT Labs: Lab Laboratory Tests Test 05/20/20 12:45 05/21/20 04:08 White Blood Count 7.1 x10^3/uL (4.0-11.0) Red Blood Count 4.28 x10^6/uL (4.30-5.70) Hemoglobin 14.4 g/dL (13.0-17.5) Hematocrit 41.3 % (39.0-53.0) Mean Corpuscular Volume 97 fL (79-100) Mean Corpuscular Hemoglobin 34 pg (25-35) Mean Corpuscular Hemoglobin Concent 35 g/dL (31-37) Red Cell Distribution Width 13.6 % (11.5-14.5) Platelet Count 255 x10^3/uL (140-400) Neutrophils (%) (Auto) 76 % (31-73) Lymphocytes (%) (Auto) 14 % (24-48) Monocytes (%) (Auto) 9 % (0-9) Eosinophils (%) (Auto) 1 % (0-3) Basophils (%) (Auto) 0 % (0-3) Neutrophils # (Auto) 5.4 x10^3/uL (1.8-7.7) Lymphocytes # (Auto) 1.0 x10^3/uL (1.0-4.8) Monocytes # (Auto) 0.6 x10^3/uL (0.0-1.1) Eosinophils # (Auto) 0.1 x10^3/uL (0.0-0.7) Basophils # (Auto) 0.0 x10^3/uL (0.0-0.2) Sodium Level 140 mmol/L (136-145) 141 mmol/L (136-145) Potassium Level 4.4 mmol/L (3.5-5.1) 4.1 mmol/L (3.5-5.1) Chloride Level 104 mmol/L (98-107) 105 mmol/L (98-107) Carbon Dioxide Level 27 mmol/L (21-32) 23 mmol/L (21-32) Anion Gap 9 (6-14) 13 (6-14) Blood Urea Nitrogen 23 mg/dL (8-26) 23 mg/dL (8-26) Creatinine 2.1 mg/dL (0.7-1.3) 2.0 mg/dL (0.7-1.3) Estimated GFR (Cockcroft-Gault) 31.7 33.5 BUN/Creatinine Ratio 11 (6-20) Glucose Level 96 mg/dL (70-99) 89 mg/dL (70-99) Calcium Level 8.3 mg/dL (8.5-10.1) 8.0 mg/dL (8.5-10.1) Total Bilirubin 0.9 mg/dL (0.2-1.0) Aspartate Amino Transf (AST/SGOT) 20 U/L (15-37) Alanine Aminotransferase (ALT/SGPT) 20 U/L (16-63) Alkaline Phosphatase 67 U/L (46-116) Total Protein 6.7 g/dL (6.4-8.2) Albumin 3.4 g/dL (3.4-5.0) Albumin/Globulin Ratio 1.0 (1.0-1.7) Objective: Assessment: Left lower extremity medial abscess/cellulitis History of left tib-fib fracture status post intramedullary nail June 2019 History of left greater saphenous ablation December 2019 Hypertension CKD h/o urinary retention Plan: Plan of Care Monitor off antibiotics as I&D is planned for tomorrow a.m. to increase the yield of intraoperative culture Send tissue or fluid for culture Follow-up labs Continue supportive care Thank you [id number] LUIS VINCENT MD May 21, 2020 11:11
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
--- NOTE | 2020-05-21 12:41 | RAD ---
Retroperitoneal ultrasound, complete INDICATION: Chronic kidney disease. TECHNIQUE: Grayscale and color Doppler imaging of the urinary tract including the urinary bladder and bilateral kidneys was performed. FINDINGS: Right kidney measures 12.5 x 7.4 x 7.5 cm and demonstrates grade 3 hydronephrosis with the renal pelvis dilated to 3.1 cm. There is increased echogenicity to the renal cortex above that of the liver, compatible with medical renal disease. No shadowing echogenic renal stones. Left kidney measures 15.2 x 4.6 x 8.5 cm and demonstrates severe left hydronephrosis with the renal pelvis measuring 4.9 cm. The renal cortex on the left is very thin and difficult to discern. No shadowing echogenic renal stones. The urinary bladder is markedly distended, measuring 14.2 x 15.8 x 11.5 cm post void and shows luminal irregularity but no discrete mass. Bilateral ureteral jets are identified. Prostate measures 6.0 x 4.8 x 3.6 cm. IMPRESSION: Evidence of medical renal disease with severe bilateral left greater than right hydronephrosis and a large postvoid residual in the setting of an enlarged prostate. Electronically signed by: No Moss MD (05/21/2020 12:38 PM) [id number]
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
--- NOTE | 2020-05-21 13:31 | NUR ---
Notified Dr. Mckee of Renal US results, received new order for u/a and to insert amato catheter. Amato catheter inserted using sterile technique and u/a obtained. Machine Puller emptied 1300mL urine from bladder, will continue to monitor.
[2020-05-21 14:28] LABS: BILIRUBIN,URINE NEGATIVE (NEG); CLARITY,URINE CLEAR; COLOR,URINE YELLOW; NITRITE,URINE NEGATIVE (NEG); PROTEIN,URINE NEGATIVE (NEG-TRACE); UROBILINOGEN,URINE 0.2 mg/dL (0.2 mg/dL)
[2020-05-21 14:33] LABS: BACTERIA,URINE 0 /HPF (0-FEW); RBC,URINE OCC /HPF (0-2); WBC,URINE 0 /HPF (0-4)
[2020-05-21 15:14] VITALS: BP 140/81
[2020-05-21 19:00] VITALS: BP 128/66
[2020-05-21] MEDS: HYDROcodone/APAP 5/325MG 1 TAB TABLET PO PRN (22:45)
[2020-05-21 23:00] VITALS: BP 119/60
[2020-05-22] VITALS (12 sets, daily range): BP systolic 89–119; BP diastolic 48–73
[2020-05-22] MEDS: CALCIUM CARBONATE 500 MG TABLET PO SCH ×2 (07:03→10:34)
[2020-05-22] MEDS: TAMSULOSIN 0.4 MG CAP.ER.24H. PO SCH ×2 (07:03→10:34)
[2020-05-22] MEDS: OMEGA-3 FATTY ACIDS/FISH OIL 1,000 MG CAPSULE. PO SCH ×2 (07:03→10:34)
[2020-05-22] MEDS: LOSARTAN POTASSIUM 50 MG TABLET. PO SCH ×2 (07:03→10:34)
[2020-05-22] MEDS: CHOLECALCIFEROL (VITAMIN D3) 1,000 UNIT TABLET PO SCH ×2 (07:04→10:34)
[2020-05-22] MEDS: CYANOCOBALAMIN (VITAMIN B-12) 1,000 MCG TABLET. PO SCH ×2 (07:04→10:34)
[2020-05-22] MEDS ORDERED: LIDOCAINE 2% PF 5 ML VIAL. ONE (07:51)
[2020-05-22] MEDS ORDERED: PROPOFOL 10 MG/ML (20ML) VIAL. IV ONE (07:51)
[2020-05-22] MEDS ORDERED: fentaNYL PF VIAL 100 MCG/2 ML VIAL ONE ×2 (07:51→09:00)
--- NOTE | 2020-05-22 08:01 | PDOC4 ---
Operative Note Operative Note Date of procedure: 05/22/2020 Surgeon: Germán Lim [employer] Supervisor: Ze Sifuentes Preoperative diagnosis: Left lower extremity abscess Postoperative diagnosis: Same Procedure performed: Irrigation debridement, skin and subcutaneous tissue, excisional, left lower extremity Anesthesia: General Complications: None Specimens: Tissue and swab sent for culture Blood loss: 10 mL Findings: Large amount of gross purulence Reason for procedure: Patient is a very pleasant 69-year-old gentleman well- known to me. Please see my consult note for full details. He had developed r edness and swelling after a cut over his leg. With the deep hardware, I did discuss with him that there is a small chance that this is call center support representative of a deep tract infection, however given his lack of pain at his tibia fracture over the past several months, and the healing that had occurred he and I both thought that proceeding with this procedure and dealing with any deeper infection, given the low likelihood, as needed later was most appropriate and right now. Description of procedure: Patient was greeted in the preoperative area by myself or the correct extremity was verified and marked. He was taken back to the operative suite, we held antibiotics until after cultures were obtained. Once in the operating room, he was transferred supine to the operating table and secured bed with all pressure points padded. He then had successful induction of a general anesthetic. The left lower extremity was prepped and draped in the usual sterile fashion and we conducted our standard preoperative timeout. After this, I made about a 6 cm incision centered over the fluctuant area over his left medial distal tibia region. I bluntly dissected the fluid pocket of the abscess to break up any loculations. I then used combination of curette and rondure to remove the unhealthy necrotic appearing tissue. We then thoroughly irrigated this area out with 3000 mL of sterile fluid. After this, I inspected the pocket it appeared fairly clean. I cauterized a couple skin edge bleeders with electrocautery. I then placed a vessel loop in the abscess to act as a drain. I then closed skin with 2-0 nylon in mattress fashion. After this, the leg was cleansed and dried and a soft compressive dressing was applied using cast padding on top of the Xeroform gauze followed by an Baron wrap. All counts correct x2 prior to wound closure. No complications. Surgeries well followed by the patient. At the inclusion, he was awakened and transferred gently supine to the recovery room cart and taken to PACU in stable and extubated condition. Postoperative plan is to readmit him to the floor under the care of the hospitalist. Antibiotics as per infectious disease. We did give him a dose of Zosyn after obtaining cultures. I will follow along. GERMÁN LIM II, MD May 22, 2020 08:01
[2020-05-22] MEDS ORDERED: PIPERACILLIN/TAZOBACTAM 3.375 GM in IV NORMAL SALINE 50ML 50 ML IV ONE (08:15)
[2020-05-22] MEDS ORDERED: fentaNYL PF VIAL 100 MCG/2 ML VIAL IV PRN (09:00)
--- NOTE | 2020-05-22 09:14 | PDOC ---
Provider Note Provider Note IN SURG, had 1300 ml in bladder w/ severe hydro from same - amtao in, psa pending- will need urology as flomax failed- ua looks clear- gfr should slowly improve also- will use low dose xarelto as proph after surgery Justicifation of Admission Dx: Justifications for Admission: Justification of Admission Dx: Yes Cellulitis: Cellulitis LITTLE MCCORD MD May 22, 2020 09:14
[2020-05-22] MEDS: fentaNYL PF VIAL 100 MCG/2 ML VIAL IV PRN ×2 (09:18→10:13)
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
[2020-05-22] MEDS: IV RINGERS,LACTATED 1000ML 1,000 ML IV SCH ×2 (10:44→21:20)
[2020-05-22] MEDS: DAPTOmycin (GENERIC) IVPB 490 MG in IV NORMAL SALINE 50ML 50 ML IV SCH (10:45)
[2020-05-22] MEDS: PIPERACILLIN/TAZOBACTAM 3.375 GM in IV NORMAL SALINE 50ML 50 ML IV SCH ×3 (12:18→23:55)
[2020-05-22] MEDS: HYDROcodone/APAP 5/325MG 1 TAB TABLET PO PRN (20:56)
[2020-05-23 03:06] VITALS: BP 98/53
[2020-05-23 04:35] LABS: BASO % 0 % (0-3); EOS % 0 % (0-3); HEMATOCRIT 39.4 % (39.0-53.0); HEMOGLOBIN 13.9 g/dL (13.0-17.5); LYMPH # 1.2 x10^3/uL (1.0-4.8); LYMPH % 12 % (24-48); MEAN CORPUSCULAR HEMOGLOBIN 34 pg (25-35); MEAN CORPUSCULAR HGB CONC 35 g/dL (31-37); MEAN CORPUSCULAR VOLUME 96 fL (79-100); MONO # 0.7 x10^3/uL (0.0-1.1); MONO % 7 % (0-9); NEUT % 81 % (31-73); PLATELET COUNT 259 x10^3/uL (140-400); RED BLOOD COUNT 4.11 x10^6/uL (4.30-5.70); RED CELL DISTRIBUTION WIDTH 13.6 % (11.5-14.5); WHITE BLOOD COUNT 9.9 x10^3/uL (4.0-11.0)
[2020-05-23 05:10] LABS: ALBUMIN 2.7 g/dL (3.4-5.0); ALBUMIN/GLOBULIN RATIO 0.9 (1.0-1.7); CALCIUM 8.1 mg/dL (8.5-10.1); CREATININE 2.3 mg/dL (0.7-1.3); GFR 28.5; POTASSIUM 4.2 mmol/L (3.5-5.1); TOTAL BILIRUBIN 0.6 mg/dL (0.2-1.0); TOTAL PROTEIN 5.8 g/dL (6.4-8.2)
[2020-05-23] MEDS: PIPERACILLIN/TAZOBACTAM 3.375 GM in IV NORMAL SALINE 50ML 50 ML IV SCH ×3 (05:50→17:21)
[2020-05-23 07:00] VITALS: BP 113/56
--- NOTE | 2020-05-23 07:54 | PDOC ---
Provider Note Provider Note good output as hydronephrosis resolves- will add low dose xarelto as proph/high risk, follow bmp for renal improvement expected- cults pending Justicifation of Admission Dx: Justifications for Admission: Justification of Admission Dx: Yes Cellulitis: Cellulitis LITTLE MCCORD MD May 23, 2020 07:54
--- NOTE | 2020-05-23 08:58 | NUR ---
SW following. Discussed with RN, pt from home, room air, regular diet. Pt currently on 2 abx, cultures pending. Pt does not have a PICC line at this time. SW will continue to follow for discharge planning needs.
[2020-05-23] MEDS: CALCIUM CARBONATE 500 MG TABLET PO SCH (09:25)
[2020-05-23] MEDS: TAMSULOSIN 0.4 MG CAP.ER.24H. PO SCH (09:25)
[2020-05-23] MEDS: LOSARTAN POTASSIUM 50 MG TABLET. PO SCH (09:25)
[2020-05-23] MEDS: CHOLECALCIFEROL (VITAMIN D3) 1,000 UNIT TABLET PO SCH (09:25)
[2020-05-23] MEDS: OMEGA-3 FATTY ACIDS/FISH OIL 1,000 MG CAPSULE. PO SCH (09:25)
[2020-05-23] MEDS: DAPTOmycin (GENERIC) IVPB 490 MG in IV NORMAL SALINE 50ML 50 ML IV SCH (09:26)
--- NOTE | 2020-05-23 09:54 | PDOC ---
Infectious Disease Note Subjective: Subjective Pt without compliants postop pain is under control says his bp was low postop but now wnl after fluids Denies fever, nausea, vomiting, shortness of breath, diarrhea, abdominal pain, rash Otherwise as above Vital Signs: Vital Signs Vital Signs Date Time Temp Pulse Resp B/P (MAP) Pulse Ox O2 Delivery O2 Flow Rate FiO2 05/23/20 09:25 62 113/56 05/23/20 07:30 Mask 05/23/20 07:00 97.9 17 99 97.9 05/22/20 08:49 8 Physical Exam: PHYSICAL EXAM Not done Medications: Inpatient Meds: Current Medications Medications (Trade) Dose Ordered Sig/Juan Diego Start Time Stop Time Status Last Admin Dose Admin Acetaminophen/ Hydrocodone Bitart (Lortab 5/325) 1 tab PRN Q6HRS PRN 05/21/20 22:45 05/22/20 20:56 1 TAB Calcium Carbonate/ Glycine (Oscal) 500 mg DAILY 05/21/20 09:00 05/23/20 09:25 500 MG Cefazolin Sodium/ Dextrose 50 ml @ 100 mls/hr 1X ONCE 05/20/20 14:30 05/20/20 14:59 DC 05/20/20 14:38 100 MLS/HR Cyanocobalamin (Vitamin B-12) 5,000 mcg DAILY 05/21/20 09:00 05/22/20 10:34 5,000 MCG Daptomycin 490 mg/ Sodium Chloride 50 ml @ 100 mls/hr Q24H 05/22/20 10:00 05/23/20 09:26 100 MLS/HR Fentanyl Citrate (Fentanyl 2ml Vial) 50 mcg PRN Q5MIN PRN 05/22/20 09:00 05/22/20 13:03 DC 05/22/20 09:05 50 MCG Fish Oil (Fish Oil) 1,000 mg DAILY 05/21/20 09:00 05/23/20 09:25 1,000 MG Ibuprofen (Motrin) 600 mg 1X ONCE 05/20/20 22:00 05/20/20 22:01 DC 05/20/20 22:53 600 MG Lidocaine HCl (Lidocaine Pf 2% Vial) 5 ml STK-MED ONCE 05/22/20 07:51 05/22/20 07:51 DC Losartan Potassium (Cozaar) 100 mg DAILY 05/21/20 09:00 05/23/20 09:25 100 MG Ondansetron HCl (Zofran) 4 mg PRN Q8HRS PRN 05/20/20 14:30 05/21/20 14:29 DC Piperacillin Sod/ Tazobactam Sod 3.375 gm/Sodium Chloride 50 ml @ 100 mls/hr Q6HRS 05/22/20 10:00 05/23/20 05:50 100 MLS/HR Propofol (Diprivan) 200 mg STK-MED ONCE 05/22/20 07:51 05/22/20 07:51 DC Ringer's Solution 1,000 ml @ 75 mls/hr [id number] 05/22/20 08:00 05/22/20 10:44 75 MLS/HR Rivaroxaban (Xarelto) 10 mg DAILYWSUP 05/23/20 17:00 Tamsulosin HCl (Flomax) 0.4 mg DAILY 05/21/20 09:00 05/23/20 09:25 0.4 MG Vancomycin HCl 250 ml @ 250 mls/hr 1X ONCE 05/20/20 12:45 05/20/20 13:44 DC 05/20/20 13:21 250 MLS/HR Vitamin D (Vitamin D3) 1,000 unit DAILY 05/21/20 09:00 05/23/20 09:25 1,000 UNIT Labs: Lab Laboratory Tests Test 05/23/20 03:33 White Blood Count 9.9 x10^3/uL (4.0-11.0) Red Blood Count 4.11 x10^6/uL (4.30-5.70) Hemoglobin 13.9 g/dL (13.0-17.5) Hematocrit 39.4 % (39.0-53.0) Mean Corpuscular Volume 96 fL (79-100) Mean Corpuscular Hemoglobin 34 pg (25-35) Mean Corpuscular Hemoglobin Concent 35 g/dL (31-37) Red Cell Distribution Width 13.6 % (11.5-14.5) Platelet Count 259 x10^3/uL (140-400) Neutrophils (%) (Auto) 81 % (31-73) Lymphocytes (%) (Auto) 12 % (24-48) Monocytes (%) (Auto) 7 % (0-9) Eosinophils (%) (Auto) 0 % (0-3) Basophils (%) (Auto) 0 % (0-3) Neutrophils # (Auto) 8.0 x10^3/uL (1.8-7.7) Lymphocytes # (Auto) 1.2 x10^3/uL (1.0-4.8) Monocytes # (Auto) 0.7 x10^3/uL (0.0-1.1) Eosinophils # (Auto) 0.0 x10^3/uL (0.0-0.7) Basophils # (Auto) 0.0 x10^3/uL (0.0-0.2) Sodium Level 137 mmol/L (136-145) Potassium Level 4.2 mmol/L (3.5-5.1) Chloride Level 104 mmol/L (98-107) Carbon Dioxide Level 23 mmol/L (21-32) Anion Gap 10 (6-14) Blood Urea Nitrogen 29 mg/dL (8-26) Creatinine 2.3 mg/dL (0.7-1.3) Estimated GFR (Cockcroft-Gault) 28.5 BUN/Creatinine Ratio 13 (6-20) Glucose Level 118 mg/dL (70-99) Calcium Level 8.1 mg/dL (8.5-10.1) Total Bilirubin 0.6 mg/dL (0.2-1.0) Aspartate Amino Transf (AST/SGOT) 12 U/L (15-37) Alanine Aminotransferase (ALT/SGPT) 11 U/L (16-63) Alkaline Phosphatase 60 U/L (46-116) Creatine Kinase 86 U/L (39-308) C-Reactive Protein, Quantitative 41.9 mg/L (0-3.3) Total Protein 5.8 g/dL (6.4-8.2) Albumin 2.7 g/dL (3.4-5.0) Albumin/Globulin Ratio 0.9 (1.0-1.7) Objective: Assessment: Left lower extremity medial abscess S/P LLE I and D 05/22 cults pending Intraoperative findings reviewed, History of left tib-fib fracture status post intramedullary nail June 2019 History of left greater saphenous ablation December 2019 History of left lower extremity DVT, now off Coumadin. Hypertension CKD Prostate enlargement with bilateral Hydronephrosis Plan: Plan of Care cont IV Dapto and Zosyn, may need renal dosing Monitor labs. Follow-up Intraoperative cultures will modify labs depending on his renal functions Wound care as directed D/W Daughter Charito on phone and at bedside D/W LUIS CEVALLOS MD May 23, 2020 09:54
[2020-05-23] MEDS: IV RINGERS,LACTATED 1000ML 1,000 ML IV SCH (09:56)
[2020-05-23] MEDS: CYANOCOBALAMIN (VITAMIN B-12) 1,000 MCG TABLET. PO SCH (09:56)
--- NOTE | 2020-05-23 10:30 | PDOC ---
ORTHO PROGRESS NOTES Subjective He denies any pain. He is looking forward to going home. No nausea vomiting, tolerating regular diet. He has been able to ambulate Vitals Vital Signs Date Time Temp Pulse Resp B/P (MAP) Pulse Ox O2 Delivery O2 Flow Rate FiO2 05/23/20 09:25 62 113/56 05/23/20 07:30 Mask 05/23/20 07:00 97.9 17 99 97.9 05/22/20 08:49 8 Labs Laboratory Tests Test 05/21/20 13:25 05/23/20 03:33 Urine Collection Type Unknown Urine Color Yellow Urine Clarity Clear Urine pH 6.0 (<5.0-8.0) Urine Specific Goode 1.015 (1.000-1.030) Urine Protein Negative mg/dL (NEG-TRACE) Urine Glucose (UA) Negative mg/dL (NEG) Urine Ketones (Stick) Negative mg/dL (NEG) Urine Blood Negative (NEG) Urine Nitrite Negative (NEG) Urine Bilirubin Negative (NEG) Urine Urobilinogen Dipstick 0.2 mg/dL (0.2 mg/dL) Urine Leukocyte Esterase Negative (NEG) Urine RBC Occ /HPF (0-2) Urine WBC 0 /HPF (0-4) Urine Squamous Epithelial Cells None /LPF Urine Bacteria 0 /HPF (0-FEW) White Blood Count 9.9 x10^3/uL (4.0-11.0) Red Blood Count 4.11 x10^6/uL (4.30-5.70) Hemoglobin 13.9 g/dL (13.0-17.5) Hematocrit 39.4 % (39.0-53.0) Mean Corpuscular Volume 96 fL (79-100) Mean Corpuscular Hemoglobin 34 pg (25-35) Mean Corpuscular Hemoglobin Concent 35 g/dL (31-37) Red Cell Distribution Width 13.6 % (11.5-14.5) Platelet Count 259 x10^3/uL (140-400) Neutrophils (%) (Auto) 81 % (31-73) Lymphocytes (%) (Auto) 12 % (24-48) Monocytes (%) (Auto) 7 % (0-9) Eosinophils (%) (Auto) 0 % (0-3) Basophils (%) (Auto) 0 % (0-3) Neutrophils # (Auto) 8.0 x10^3/uL (1.8-7.7) Lymphocytes # (Auto) 1.2 x10^3/uL (1.0-4.8) Monocytes # (Auto) 0.7 x10^3/uL (0.0-1.1) Eosinophils # (Auto) 0.0 x10^3/uL (0.0-0.7) Basophils # (Auto) 0.0 x10^3/uL (0.0-0.2) Sodium Level 137 mmol/L (136-145) Potassium Level 4.2 mmol/L (3.5-5.1) Chloride Level 104 mmol/L (98-107) Carbon Dioxide Level 23 mmol/L (21-32) Anion Gap 10 (6-14) Blood Urea Nitrogen 29 mg/dL (8-26) Creatinine 2.3 mg/dL (0.7-1.3) Estimated GFR (Cockcroft-Gault) 28.5 BUN/Creatinine Ratio 13 (6-20) Glucose Level 118 mg/dL (70-99) Calcium Level 8.1 mg/dL (8.5-10.1) Total Bilirubin 0.6 mg/dL (0.2-1.0) Aspartate Amino Transf (AST/SGOT) 12 U/L (15-37) Alanine Aminotransferase (ALT/SGPT) 11 U/L (16-63) Alkaline Phosphatase 60 U/L (46-116) Creatine Kinase 86 U/L (39-308) C-Reactive Protein, Quantitative 41.9 mg/L (0-3.3) Total Protein 5.8 g/dL (6.4-8.2) Albumin 2.7 g/dL (3.4-5.0) Albumin/Globulin Ratio 0.9 (1.0-1.7) Laboratory Tests Test 05/23/20 03:33 White Blood Count 9.9 x10^3/uL (4.0-11.0) Red Blood Count 4.11 x10^6/uL (4.30-5.70) Hemoglobin 13.9 g/dL (13.0-17.5) Hematocrit 39.4 % (39.0-53.0) Mean Corpuscular Volume 96 fL (79-100) Mean Corpuscular Hemoglobin 34 pg (25-35) Mean Corpuscular Hemoglobin Concent 35 g/dL (31-37) Red Cell Distribution Width 13.6 % (11.5-14.5) Platelet Count 259 x10^3/uL (140-400) Neutrophils (%) (Auto) 81 % (31-73) Lymphocytes (%) (Auto) 12 % (24-48) Monocytes (%) (Auto) 7 % (0-9) Eosinophils (%) (Auto) 0 % (0-3) Basophils (%) (Auto) 0 % (0-3) Neutrophils # (Auto) 8.0 x10^3/uL (1.8-7.7) Lymphocytes # (Auto) 1.2 x10^3/uL (1.0-4.8) Monocytes # (Auto) 0.7 x10^3/uL (0.0-1.1) Eosinophils # (Auto) 0.0 x10^3/uL (0.0-0.7) Basophils # (Auto) 0.0 x10^3/uL (0.0-0.2) Sodium Level 137 mmol/L (136-145) Potassium Level 4.2 mmol/L (3.5-5.1) Chloride Level 104 mmol/L (98-107) Carbon Dioxide Level 23 mmol/L (21-32) Anion Gap 10 (6-14) Blood Urea Nitrogen 29 mg/dL (8-26) Creatinine 2.3 mg/dL (0.7-1.3) Estimated GFR (Cockcroft-Gault) 28.5 BUN/Creatinine Ratio 13 (6-20) Glucose Level 118 mg/dL (70-99) Calcium Level 8.1 mg/dL (8.5-10.1) Total Bilirubin 0.6 mg/dL (0.2-1.0) Aspartate Amino Transf (AST/SGOT) 12 U/L (15-37) Alanine Aminotransferase (ALT/SGPT) 11 U/L (16-63) Alkaline Phosphatase 60 U/L (46-116) Creatine Kinase 86 U/L (39-308) C-Reactive Protein, Quantitative 41.9 mg/L (0-3.3) Total Protein 5.8 g/dL (6.4-8.2) Albumin 2.7 g/dL (3.4-5.0) Albumin/Globulin Ratio 0.9 (1.0-1.7) Notes He is awake and alert and sitting in bed. His dressing is intact with expected amount of drainage. Normal motor and sensation are present in his toes Assessment and Plan I discussed wound care with him. From my standpoint, he can be discharged once infectious disease has selected his antibiotic. I will see him back in clinic in 2 weeks if he does go home today. JOHNATHON LIM II, MD May 23, 2020 10:30
[2020-05-23 11:00] VITALS: BP 125/74
[2020-05-23 15:00] VITALS: BP 96/54
--- NOTE | 2020-05-23 16:15 | NUR ---
Pt. c/o soreness and new redness to R ac. He stated it began this afternoon. area marked, Dr. Mckee paged. Per daughter request, R hand IV d/c'd.
[2020-05-23] MEDS: RIVAROXABAN 10 MG TABLET. PO SCH (17:20)
--- NOTE | 2020-05-23 18:18 | NUR ---
returned call, notified of reddened are to R ac, no telephone orders received.
[2020-05-23 19:39] VITALS: BP 121/71
[2020-05-23] MEDS: LACTOBACILLUS RHAMNOSUS GG 1 CAPSULE. PO SCH (20:56)
[2020-05-23 22:35] VITALS: BP 121/77
[2020-05-24] MEDS: PIPERACILLIN/TAZOBACTAM 3.375 GM in IV NORMAL SALINE 50ML 50 ML IV SCH ×4 (00:05→18:27)
[2020-05-24] MEDS: IV RINGERS,LACTATED 1000ML 1,000 ML IV SCH (01:53)
[2020-05-24 02:42] VITALS: BP 118/64
[2020-05-24 05:35] LABS: BASO # 0.1 x10^3/uL (0.0-0.2); BASO % 1 % (0-3); EOS # 0.2 x10^3/uL (0.0-0.7); EOS % 3 % (0-3); HEMATOCRIT 38.6 % (39.0-53.0); HEMOGLOBIN 13.4 g/dL (13.0-17.5); LYMPH # 1.4 x10^3/uL (1.0-4.8); LYMPH % 22 % (24-48); MEAN CORPUSCULAR HEMOGLOBIN 34 pg (25-35); MEAN CORPUSCULAR HGB CONC 35 g/dL (31-37); MEAN CORPUSCULAR VOLUME 96 fL (79-100); MONO # 0.5 x10^3/uL (0.0-1.1); MONO % 8 % (0-9); NEUT # 4.3 x10^3/uL (1.8-7.7); NEUT % 66 % (31-73); PLATELET COUNT 268 x10^3/uL (140-400); RED BLOOD COUNT 4.01 x10^6/uL (4.30-5.70); RED CELL DISTRIBUTION WIDTH 13.7 % (11.5-14.5); WHITE BLOOD COUNT 6.6 x10^3/uL (4.0-11.0)
[2020-05-24 06:10] LABS: ALBUMIN 2.7 g/dL (3.4-5.0); ALBUMIN/GLOBULIN RATIO 0.9 (1.0-1.7); CALCIUM 8.3 mg/dL (8.5-10.1); CREATININE 2.2 mg/dL (0.7-1.3); POTASSIUM 4.3 mmol/L (3.5-5.1); TOTAL BILIRUBIN 0.5 mg/dL (0.2-1.0); TOTAL PROTEIN 5.6 g/dL (6.4-8.2)
[2020-05-24 07:00] VITALS: BP 109/64
--- NOTE | 2020-05-24 07:57 | PDOC ---
Provider Note Provider Note no temp, bp a little low- good output- creat same after amato- will reduce losartan dose, cults of leg abscess pending- he is trying to get [facility] Justicifation of Admission Dx: Justifications for Admission: Justification of Admission Dx: Yes Cellulitis: Cellulitis LITTLE MCCORD MD May 24, 2020 07:57
[2020-05-24] MEDS: OMEGA-3 FATTY ACIDS/FISH OIL 1,000 MG CAPSULE. PO SCH (08:02)
[2020-05-24] MEDS: CHOLECALCIFEROL (VITAMIN D3) 1,000 UNIT TABLET PO SCH (08:02)
[2020-05-24] MEDS: TAMSULOSIN 0.4 MG CAP.ER.24H. PO SCH (08:03)
[2020-05-24] MEDS: LACTOBACILLUS RHAMNOSUS GG 1 CAPSULE. PO SCH ×2 (08:03→21:02)
[2020-05-24] MEDS: CALCIUM CARBONATE 500 MG TABLET PO SCH (08:04)
--- NOTE | 2020-05-24 08:26 | PDOC ---
ORTHO PROGRESS NOTES Subjective Herrera catheter in place. He denies any pain. He feels like he would really like to go home. No new complaints Vitals Vital Signs Date Time Temp Pulse Resp B/P (MAP) Pulse Ox O2 Delivery O2 Flow Rate FiO2 05/24/20 07:00 98.2 68 18 109/64 (79) 98 Room Air 98.2 Labs Laboratory Tests Test 05/23/20 03:33 05/24/20 04:06 White Blood Count 9.9 x10^3/uL (4.0-11.0) 6.6 x10^3/uL (4.0-11.0) Red Blood Count 4.11 x10^6/uL (4.30-5.70) 4.01 x10^6/uL (4.30-5.70) Hemoglobin 13.9 g/dL (13.0-17.5) 13.4 g/dL (13.0-17.5) Hematocrit 39.4 % (39.0-53.0) 38.6 % (39.0-53.0) Mean Corpuscular Volume 96 fL (79-100) 96 fL (79-100) Mean Corpuscular Hemoglobin 34 pg (25-35) 34 pg (25-35) Mean Corpuscular Hemoglobin Concent 35 g/dL (31-37) 35 g/dL (31-37) Red Cell Distribution Width 13.6 % (11.5-14.5) 13.7 % (11.5-14.5) Platelet Count 259 x10^3/uL (140-400) 268 x10^3/uL (140-400) Neutrophils (%) (Auto) 81 % (31-73) 66 % (31-73) Lymphocytes (%) (Auto) 12 % (24-48) 22 % (24-48) Monocytes (%) (Auto) 7 % (0-9) 8 % (0-9) Eosinophils (%) (Auto) 0 % (0-3) 3 % (0-3) Basophils (%) (Auto) 0 % (0-3) 1 % (0-3) Neutrophils # (Auto) 8.0 x10^3/uL (1.8-7.7) 4.3 x10^3/uL (1.8-7.7) Lymphocytes # (Auto) 1.2 x10^3/uL (1.0-4.8) 1.4 x10^3/uL (1.0-4.8) Monocytes # (Auto) 0.7 x10^3/uL (0.0-1.1) 0.5 x10^3/uL (0.0-1.1) Eosinophils # (Auto) 0.0 x10^3/uL (0.0-0.7) 0.2 x10^3/uL (0.0-0.7) Basophils # (Auto) 0.0 x10^3/uL (0.0-0.2) 0.1 x10^3/uL (0.0-0.2) Sodium Level 137 mmol/L (136-145) 141 mmol/L (136-145) Potassium Level 4.2 mmol/L (3.5-5.1) 4.3 mmol/L (3.5-5.1) Chloride Level 104 mmol/L (98-107) 107 mmol/L (98-107) Carbon Dioxide Level 23 mmol/L (21-32) 25 mmol/L (21-32) Anion Gap 10 (6-14) 9 (6-14) Blood Urea Nitrogen 29 mg/dL (8-26) 28 mg/dL (8-26) Creatinine 2.3 mg/dL (0.7-1.3) 2.2 mg/dL (0.7-1.3) Estimated GFR (Cockcroft-Gault) 28.5 30.0 BUN/Creatinine Ratio 13 (6-20) 13 (6-20) Glucose Level 118 mg/dL (70-99) 91 mg/dL (70-99) Calcium Level 8.1 mg/dL (8.5-10.1) 8.3 mg/dL (8.5-10.1) Total Bilirubin 0.6 mg/dL (0.2-1.0) 0.5 mg/dL (0.2-1.0) Aspartate Amino Transf (AST/SGOT) 12 U/L (15-37) 13 U/L (15-37) Alanine Aminotransferase (ALT/SGPT) 11 U/L (16-63) 11 U/L (16-63) Alkaline Phosphatase 60 U/L (46-116) 53 U/L (46-116) Creatine Kinase 86 U/L (39-308) 63 U/L (39-308) C-Reactive Protein, Quantitative 41.9 mg/L (0-3.3) Total Protein 5.8 g/dL (6.4-8.2) 5.6 g/dL (6.4-8.2) Albumin 2.7 g/dL (3.4-5.0) 2.7 g/dL (3.4-5.0) Albumin/Globulin Ratio 0.9 (1.0-1.7) 0.9 (1.0-1.7) Laboratory Tests Test 05/24/20 04:06 White Blood Count 6.6 x10^3/uL (4.0-11.0) Red Blood Count 4.01 x10^6/uL (4.30-5.70) Hemoglobin 13.4 g/dL (13.0-17.5) Hematocrit 38.6 % (39.0-53.0) Mean Corpuscular Volume 96 fL (79-100) Mean Corpuscular Hemoglobin 34 pg (25-35) Mean Corpuscular Hemoglobin Concent 35 g/dL (31-37) Red Cell Distribution Width 13.7 % (11.5-14.5) Platelet Count 268 x10^3/uL (140-400) Neutrophils (%) (Auto) 66 % (31-73) Lymphocytes (%) (Auto) 22 % (24-48) Monocytes (%) (Auto) 8 % (0-9) Eosinophils (%) (Auto) 3 % (0-3) Basophils (%) (Auto) 1 % (0-3) Neutrophils # (Auto) 4.3 x10^3/uL (1.8-7.7) Lymphocytes # (Auto) 1.4 x10^3/uL (1.0-4.8) Monocytes # (Auto) 0.5 x10^3/uL (0.0-1.1) Eosinophils # (Auto) 0.2 x10^3/uL (0.0-0.7) Basophils # (Auto) 0.1 x10^3/uL (0.0-0.2) Sodium Level 141 mmol/L (136-145) Potassium Level 4.3 mmol/L (3.5-5.1) Chloride Level 107 mmol/L (98-107) Carbon Dioxide Level 25 mmol/L (21-32) Anion Gap 9 (6-14) Blood Urea Nitrogen 28 mg/dL (8-26) Creatinine 2.2 mg/dL (0.7-1.3) Estimated GFR (Cockcroft-Gault) 30.0 BUN/Creatinine Ratio 13 (6-20) Glucose Level 91 mg/dL (70-99) Calcium Level 8.3 mg/dL (8.5-10.1) Total Bilirubin 0.5 mg/dL (0.2-1.0) Aspartate Amino Transf (AST/SGOT) 13 U/L (15-37) Alanine Aminotransferase (ALT/SGPT) 11 U/L (16-63) Alkaline Phosphatase 53 U/L (46-116) Creatine Kinase 63 U/L (39-308) Total Protein 5.6 g/dL (6.4-8.2) Albumin 2.7 g/dL (3.4-5.0) Albumin/Globulin Ratio 0.9 (1.0-1.7) Notes No organisms on Gram stain He is awake and alert in bed. Dressing was taken off, incision has expected amount of drainage present. Overall his erythema and edema are improved. Assessment and Plan We discussed some wound care again today. Antibiotics per infectious disease and discharge once that has been completed. I did discuss with him that it might take another day or 2. JOHNATHON LIM II, MD May 24, 2020 08:26
[2020-05-24] MEDS: LOSARTAN POTASSIUM 50 MG TABLET. PO SCH (09:00)
[2020-05-24] MEDS: CYANOCOBALAMIN (VITAMIN B-12) 1,000 MCG TABLET. PO SCH (09:56)
[2020-05-24] MEDS: DAPTOmycin (GENERIC) IVPB 490 MG in IV NORMAL SALINE 50ML 50 ML IV SCH (09:57)
--- NOTE | 2020-05-24 09:57 | PDOC ---
Infectious Disease Note Subjective: Subjective Pt without compliants Denies any pain ambulating in room without difficulty eager for dc home today Denies fever, nausea, vomiting, shortness of breath, diarrhea, abdominal pain, rash Otherwise as above Vital Signs: Vital Signs Vital Signs Date Time Temp Pulse Resp B/P (MAP) Pulse Ox O2 Delivery O2 Flow Rate FiO2 05/24/20 08:00 Room Air 05/24/20 07:00 98.2 68 18 109/64 (79) 98 98.2 Physical Exam: PHYSICAL EXAM GENERAL: Alert and oriented x 3 male, pleasant, cooperative, in no acute distress, lying comfortably in bed. HEENT: Normocephalic, atraumatic, anicteric. NECK: Supple, no JVD. LUNGS: Clear bilaterally. No wheezing. HEART: S1, S2. No gallops or murmurs. ABDOMEN: Soft, nontender, nondistended, no rebound, no guarding. EXTREMITIES: Left lower extremity dressing in place, intact dry, taken down incision intact, no drainage, swelling and erythema has been decreasing amato in place BACK: Reveals normal curvature. No CVA tenderness. NEUROLOGIC: Alert and oriented x 3, grossly nonfocal. PSYCHIATRIC: Cooperative, appropriate mood and affect. Medications: Inpatient Meds: Current Medications Medications (Trade) Dose Ordered Sig/Juan Diego Start Time Stop Time Status Last Admin Dose Admin Acetaminophen/ Hydrocodone Bitart (Lortab 5/325) 1 tab PRN Q6HRS PRN 05/21/20 22:45 05/22/20 20:56 1 TAB Calcium Carbonate/ Glycine (Oscal) 500 mg DAILY 05/21/20 09:00 05/24/20 08:04 500 MG Cefazolin Sodium/ Dextrose 50 ml @ 100 mls/hr 1X ONCE 05/20/20 14:30 05/20/20 14:59 DC 05/20/20 14:38 100 MLS/HR Cyanocobalamin (Vitamin B-12) 5,000 mcg DAILY 05/21/20 09:00 05/23/20 09:56 5,000 MCG Daptomycin 490 mg/ Sodium Chloride 50 ml @ 100 mls/hr Q24H 05/22/20 10:00 05/23/20 09:26 100 MLS/HR Fentanyl Citrate (Fentanyl 2ml Vial) 50 mcg PRN Q5MIN PRN 05/22/20 09:00 05/22/20 13:03 DC 05/22/20 09:05 50 MCG Fish Oil (Fish Oil) 1,000 mg DAILY 05/21/20 09:00 05/24/20 08:02 1,000 MG Ibuprofen (Motrin) 600 mg 1X ONCE 05/20/20 22:00 05/20/20 22:01 DC 05/20/20 22:53 600 MG Lactobacillus Rhamnosus (Culturelle) 1 cap BID 05/23/20 21:00 05/24/20 08:03 1 CAP Lidocaine HCl (Lidocaine Pf 2% Vial) 5 ml STK-MED ONCE 05/22/20 07:51 05/22/20 07:51 DC Losartan Potassium (Cozaar) 50 mg DAILY 05/24/20 09:00 Ondansetron HCl (Zofran) 4 mg PRN Q8HRS PRN 05/20/20 14:30 05/21/20 14:29 DC Piperacillin Sod/ Tazobactam Sod 3.375 gm/Sodium Chloride 50 ml @ 100 mls/hr Q6HRS 05/22/20 10:00 05/24/20 06:06 100 MLS/HR Propofol (Diprivan) 200 mg STK-MED ONCE 05/22/20 07:51 05/22/20 07:51 DC Ringer's Solution 1,000 ml @ 75 mls/hr [id number] 05/22/20 08:00 05/24/20 07:47 DC 05/24/20 01:53 75 MLS/HR Rivaroxaban (Xarelto) 10 mg DAILYWSUP 05/23/20 17:00 05/23/20 17:20 10 MG Tamsulosin HCl (Flomax) 0.8 mg DAILY 05/24/20 09:00 05/24/20 08:03 0.8 MG Vancomycin HCl 250 ml @ 250 mls/hr 1X ONCE 05/20/20 12:45 05/20/20 13:44 DC 05/20/20 13:21 250 MLS/HR Vitamin D (Vitamin D3) 1,000 unit DAILY 05/21/20 09:00 05/24/20 08:02 1,000 UNIT Labs: Lab Laboratory Tests Test 05/24/20 04:06 White Blood Count 6.6 x10^3/uL (4.0-11.0) Red Blood Count 4.01 x10^6/uL (4.30-5.70) Hemoglobin 13.4 g/dL (13.0-17.5) Hematocrit 38.6 % (39.0-53.0) Mean Corpuscular Volume 96 fL (79-100) Mean Corpuscular Hemoglobin 34 pg (25-35) Mean Corpuscular Hemoglobin Concent 35 g/dL (31-37) Red Cell Distribution Width 13.7 % (11.5-14.5) Platelet Count 268 x10^3/uL (140-400) Neutrophils (%) (Auto) 66 % (31-73) Lymphocytes (%) (Auto) 22 % (24-48) Monocytes (%) (Auto) 8 % (0-9) Eosinophils (%) (Auto) 3 % (0-3) Basophils (%) (Auto) 1 % (0-3) Neutrophils # (Auto) 4.3 x10^3/uL (1.8-7.7) Lymphocytes # (Auto) 1.4 x10^3/uL (1.0-4.8) Monocytes # (Auto) 0.5 x10^3/uL (0.0-1.1) Eosinophils # (Auto) 0.2 x10^3/uL (0.0-0.7) Basophils # (Auto) 0.1 x10^3/uL (0.0-0.2) Sodium Level 141 mmol/L (136-145) Potassium Level 4.3 mmol/L (3.5-5.1) Chloride Level 107 mmol/L (98-107) Carbon Dioxide Level 25 mmol/L (21-32) Anion Gap 9 (6-14) Blood Urea Nitrogen 28 mg/dL (8-26) Creatinine 2.2 mg/dL (0.7-1.3) Estimated GFR (Cockcroft-Gault) 30.0 BUN/Creatinine Ratio 13 (6-20) Glucose Level 91 mg/dL (70-99) Calcium Level 8.3 mg/dL (8.5-10.1) Total Bilirubin 0.5 mg/dL (0.2-1.0) Aspartate Amino Transf (AST/SGOT) 13 U/L (15-37) Alanine Aminotransferase (ALT/SGPT) 11 U/L (16-63) Alkaline Phosphatase 53 U/L (46-116) Creatine Kinase 63 U/L (39-308) Total Protein 5.6 g/dL (6.4-8.2) Albumin 2.7 g/dL (3.4-5.0) Albumin/Globulin Ratio 0.9 (1.0-1.7) Micro RUN DATE: 05/24/20 [facility] *LIVE* PAGE 1 RUN TIME: 936 Specimen Inquiry PATIENT: LITTLE FRANCO ACCT: [id number] LOC: [address] [place] [address] U: [id number] AGE/SX: 69/M ROOM: [facility] RE05/20/[address]: LITTLE MCCORD MD : 1950 BED: 1 DIS: STATUS: ADM IN TLOC: SPEC #: [id number] [place]: 05/22/20-08 STATUS: RES REQ #: [id number] RECD: 05/22/20-[address]: LITTLE MCCORD MD SOURCE: DRAINAGE ENTR: 05/22/20-[address]: JOHNATHON LIM II, MD [facility]: WOUND JESSICA NAYLOR MD, VENKAT R MD ORDERED: ANAER/AERPREMA/STEPHON COMMENTS: LEFT LOWER LEG, SWAB Procedure Result GRAM STAIN Final Final NO ORGANISMS SEEN. SQUAMOUS EPI CELL:NONE SEEN PMN (WBCs):FEW Unless otherwise specified, Testing Performed by: [place] [address] For Inquires, the Physician may contact the Microbiology department at [phone] ANAEROBIC-AEROBIC CULTURE Preliminary Preliminary MODERATE GRAM POSITIVE COCCI on 05/24/20 at 0933 FINAL ID= [STAPHYLOCOCCUS AUREUS] STAPHYLOCOCCUS AUREUS Unless otherwise specified, Testing Performed by: [address] [address] For Inquires, the Physician may contact the Microbiology department at [phone] --------- --- RUN DATE: 05/24/20 [facility] *LIVE* PAGE 1 RUN TIME: 936 Specimen Inquiry PATIENT: FRANCOLITTLE ACCT: [id number] LOC: [address] [place] [address] U: [id number] AGE/SX: 69/M ROOM: 424 RE05/20/[address]: LITTLE MCCORD MD : 1950 BED: 1 DIS: STATUS: ADM IN TLOC: SPEC #: [id number] [place]: 05/22/20 STATUS: RES REQ #: [id number] RECD: 05/22/20-[address]: LITTLE MCCORD MD SOURCE: DRAINAGE ENTR: 05/22/20-[address]: JOHNATHON LIM II, MD SPDESC: WOUND JESSICA NAYLOR MD, VENKAT R MD ORDERED: ANAER/AEROB/GS COMMENTS: LEFT LOWER LEG, SWAB Procedure Result GRAM STAIN Final Final NO ORGANISMS SEEN. SQUAMOUS EPI CELL:NONE SEEN PMN (WBCs):FEW Unless otherwise specified, Testing Performed by: [address] [address] For Inquires, the Physician may contact the Microbiology department at [phone] ANAEROBIC-AEROBIC CULTURE Preliminary Preliminary MODERATE GRAM POSITIVE COCCI on 05/24/20 at 0933 FINAL ID= [STAPHYLOCOCCUS AUREUS] STAPHYLOCOCCUS AUREUS Unless otherwise specified, Testing Performed by: [address] [address] For Inquires, the Physician may contact the Microbiology department at [phone] Objective: Assessment: Left lower extremity medial abscess, staph aureus S/P LLE I and D 05/22 cults staph aureus, YULIANA pending Intraoperative findings reviewed, LLE cellulitis improving History of left tib-fib fracture status post intramedullary nail June 2019 History of left greater saphenous ablation December 2019 History of left lower extremity DVT, now off Coumadin. Hypertension CKD Prostate enlargement with bilateral Hydronephrosis Plan: Plan of Care Pt eager for dc home today midline placement Continue daptomycin , prescription in chart YULIANA is of staph aureus pending at this time Will add empiric rifampin due to hardware in place Rationale of antibiotic use were discussed Side effects of antibiotics discussed at length possibility of failure discussed due to hw in place Weekly labs q Saturday CBC/BUN/Creatinine/CRP/CPK/LFTs Fax results to [phone] Duration of antibiotics depends on clinical response Wound care as directed Patient verbalized understanding Follow-up with me ID clinic appointment June 08 at 1;45 pm [phone] Prescription in chart Discussed with delinquency prevention social worker Social work to assist with discharge antibiotics Discussed with at bedside Discussed with daughter on phone yesterday LUIS VINCENT MD May 24, 2020 09:57
[2020-05-24] MEDS ORDERED: ERTAPENEM 1 GM in IV NORMAL SALINE 50ML 50 ML IV ONE (10:30)
[2020-05-24 11:00] VITALS: BP 111/66
[2020-05-24] MEDS ORDERED: ANTI-COAG MONITOR BY PHARMACY. MC PRN (11:00)
[2020-05-24] MEDS: riFAMpin 300 MG CAPSULE. PO SCH ×2 (11:47→21:03)
--- NOTE | 2020-05-24 12:54 | NUR ---
SW following. Discussed with RN, pt needing IV Daptomycin 6mg/kg q24 for 2-3 weeks. CHANDANA met with pt and pt's at bedside (no isolation precautions at the time), pt would prefer to do home infusion, CHANDANA explained about insurance coverage. Pt provided SW with [employer] prescription care to check benefits with [facility]. Pt agreeable to coming to [facility] outpatient daily of cost is excessive for home infusion - would prefer to come in the mornings. Pt would be responsible for $1262.15 per week for IV Dapto for home infusion. SW notified outpatient ([phone]) of referral and hoping to start tomorrow, PICC line ordered today, pt has been having daptomycin already. SW to notify pt of plan. CHANDANA will continue to follow.
[2020-05-24 15:00] VITALS: BP 129/68
[2020-05-24] MEDS: RIVAROXABAN 10 MG TABLET. PO SCH (18:27)
[2020-05-24 19:00] VITALS: BP 103/71
[2020-05-24 23:01] VITALS: BP 117/84
[2020-05-25] MEDS: PIPERACILLIN/TAZOBACTAM 3.375 GM in IV NORMAL SALINE 50ML 50 ML IV SCH ×3 (00:17→12:41)
[2020-05-25 03:00] VITALS: BP 106/65
[2020-05-25 07:15] VITALS: BP_SYST 121; BP_SYST 67; BP_DIAS 65; BP_DIAS 67
--- NOTE | 2020-05-25 07:29 | PDOC ---
Provider Note Provider Note [id number] Justicifation of Admission Dx: Justifications for Admission: Justification of Admission Dx: Yes Cellulitis: Cellulitis LITTLE MCCORD MD May 25, 2020 07:29
--- NOTE | 2020-05-25 08:17 | PDOC ---
Infectious Disease Note Vital Signs: Vital Signs Vital Signs Date Time Temp Pulse Resp B/P (MAP) Pulse Ox O2 Delivery O2 Flow Rate FiO2 05/25/20 07:25 Room Air 05/25/20 07:15 98.2 91 18 121/67 (39) 97 98.2 Physical Exam: PHYSICAL EXAM Medications: Inpatient Meds: Labs: Micro RUN DATE: 05/24/20 [facility] LAB *LIVE* PAGE 1 RUN TIME: 932 Specimen Inquiry PATIENT: JOANLITTLE ACCT: [id number] LOC: [address] [place] [address] U: [id number] AGE/SX: 69/M ROOM: [facility] RE05/20/[address]: LITTLE MCCORD MD : 1950 BED: 1 DIS: STATUS: ADM IN TLOC: SPEC #: [id number] [place]: 05/22/20-818 STATUS: RES REQ #: [id number] RECD: 05/22/20-[address] [facility] [address]: LITTLE MCCORD MD SOURCE: TISSUE ENTR: 05/22/20-1118 [facility] DR: JOHNATHON LIM II, MD [facility]: JESSICA ARGUETA MD, VENKAT R MD ORDERED: RAMON/JLUIS/STEPHON COMMENTS: LT LOWER LEG TISSUE Procedure Result GRAM STAIN Final Final NO ORGANISMS SEEN. RBC:MANY SQUAMOUS EPI CELL:NOT APPLICABLE PMN (WBCs):NONE SEEN Unless otherwise specified, Testing Performed by: [address] [address] For Inquires, the Physician may contact the Microbiology department at [phone] ANAEROBIC-AEROBIC CULTURE Preliminary Preliminary MANY GRAM POSITIVE COCCI on 05/24/20 at 0928 FINAL ID= [STAPHYLOCOCCUS AUREUS] MICRO CHARGES STAPHYLOCOCCUS AUREUS Unless otherwise specified, Testing Performed by: [address] [address] For Inquires, the Physician may contact the Microbiology department at [phone] Objective: Assessment: Plan: Plan of Care Duplicate LUIS Nelson MD 1, 2020 08:17
[2020-05-25] MEDS: riFAMpin 300 MG CAPSULE. PO SCH (08:23)
[2020-05-25] MEDS: TAMSULOSIN 0.4 MG CAP.ER.24H. PO SCH (08:23)
[2020-05-25] MEDS: LOSARTAN POTASSIUM 50 MG TABLET. PO SCH (08:23)
--- NOTE | 2020-05-25 08:27 | DS ---
DATE OF DISCHARGE: 05/25/2020 HOSPITAL SUMMARY: A 69-year-old white male admitted with left lower leg abscess of unknown etiology. He was also found to be in urinary retention with enlarged bladder and bilateral hydronephrosis on bladder scan with an enlarged prostate. PSA was normal at 1.3, creatinine 2.0, and GFR 33 and about the same at dismissal. Rest of laboratory studies unremarkable as was the urine and COVID was negative. DVT study on his leg was negative and tib/fib study showed the hardware with no sign of infection. He initially got IV vancomycin and Zosyn and then taken to the operating room for incision and drainage of abscess per Dr. Marte and cultures done and grew out Staphylococcus aureus with ID pending at this time. He has clinically done well on Cubicin and Zosyn and is afebrile. His Herrera catheter relieved his hydronephrosis and bladder distention and we will follow his renal function as an outpatient. Urologic consultation was not available. His Flomax was increased to 0.8 mg daily and he is able to go home for home IV or daily Cubicin therapy under the direction of Dr. Alfaro at this time. FINAL DIAGNOSES: 1. Abscess, left lower extremity with Staphylococcus aureus. 2. Urinary retention and secondary hydronephrosis, resolved with catheter. 3. Chronic kidney disease 3/4, likely secondary to hydronephrosis. OPERATIONS AND PROCEDURES: Incision and drainage of abscess. COMPLICATIONS: None. CONSULTATIONS: Dr. Alfaro of Infectious Disease, Dr. Hsu. DISPOSITION: He will have the Herrera catheter initially seen by urologist and see if his bladder voiding trial can be accomplished with a higher dose Flomax. He will come in for daily Cubicin therapy with renal dosing under the direction of Dr. Alfaro for at least 2 more weeks or a possible change in medication pending Staphylococcus identification. No anticoagulation will be used at this time. Home meds remain the same. Activity as tolerated and we will follow up his renal function in 2-4 weeks and hope to see improvement in his CKD status. LITTLE MCCORD MD DR: JASIEL/christa JOB#: [id number] / [id number]
--- NOTE | 2020-05-25 09:07 | NUR ---
CHANDANA following. Discussed with RN, pt likely getting PICC line today, then can discharge (discharge order entered). CHANDANA spoke with outpatient clinic, infusion time set up for Addendum: 05/25/20 at 0918 by ILYA ELLINGTON note saved automatically before completed. Pt is to call the outpatient clinic at 5100 to arrange a time for his infusions. RN notified. CHANDANA will continue to follow.
--- NOTE | 2020-05-25 09:09 | PDOC ---
Infectious Disease Note Subjective: Subjective Pt without compliants Denies any postop site pain ambulating in room without difficulty eager for dc home today Awaiting PICC line placement Denies fever, nausea, vomiting, shortness of breath, diarrhea, abdominal pain, rash Otherwise as above Vital Signs: Vital Signs Vital Signs Date Time Temp Pulse Resp B/P (MAP) Pulse Ox O2 Delivery O2 Flow Rate FiO2 05/25/20 08:23 91 121/67 05/25/20 07:25 Room Air 05/25/20 07:15 98.2 18 97 98.2 Physical Exam: PHYSICAL EXAM GENERAL: Alert and oriented x 3 male, pleasant, cooperative, in no acute distress, lying comfortably in bed. HEENT: Normocephalic, atraumatic, anicteric. NECK: Supple, no JVD. LUNGS: Clear bilaterally. No wheezing. HEART: S1, S2. No gallops or murmurs. ABDOMEN: Soft, nontender, nondistended, no rebound, no guarding. EXTREMITIES: Left lower extremity dressing in place, intact dry, right upper extremity mild swelling and tenderness at the previous IV site BACK: Reveals normal curvature. No CVA tenderness. NEUROLOGIC: Alert and oriented x 3, grossly nonfocal. PSYCHIATRIC: Cooperative, appropriate mood and affect. PIV looks okay Medications: Inpatient Meds: Current Medications Medications (Trade) Dose Ordered Sig/Juan Diego Start Time Stop Time Status Last Admin Dose Admin Acetaminophen/ Hydrocodone Bitart (Lortab 5/325) 1 tab PRN Q6HRS PRN 05/21/20 22:45 05/25/20 07:24 DC 05/22/20 20:56 1 TAB Calcium Carbonate/ Glycine (Oscal) 500 mg DAILY 05/21/20 09:00 05/25/20 07:24 DC 05/24/20 08:04 500 MG Cefazolin Sodium/ Dextrose 50 ml @ 100 mls/hr 1X ONCE 05/20/20 14:30 05/20/20 14:59 DC 05/20/20 14:38 100 MLS/HR Cyanocobalamin (Vitamin B-12) 5,000 mcg DAILY 05/21/20 09:00 05/25/20 07:24 DC 05/24/20 09:56 5,000 MCG Daptomycin 490 mg/ Sodium Chloride 50 ml @ 100 mls/hr Q24H 05/22/20 10:00 05/24/20 09:57 100 MLS/HR Ertapenem 1 gm/ Sodium Chloride 50 ml @ 100 mls/hr 1X ONCE 05/24/20 10:30 05/24/20 10:32 DC Fentanyl Citrate (Fentanyl 2ml Vial) 50 mcg PRN Q5MIN PRN 05/22/20 09:00 05/22/20 13:03 DC 05/22/20 09:05 50 MCG Fish Oil (Fish Oil) 1,000 mg DAILY 05/21/20 09:00 05/25/20 07:24 DC 05/24/20 08:02 1,000 MG Ibuprofen (Motrin) 600 mg 1X ONCE 05/20/20 22:00 05/20/20 22:01 DC 05/20/20 22:53 600 MG Info (Anti-Coagulation Monitoring By Pharmacy) 1 each PRN DAILY PRN 05/24/20 11:00 Lactobacillus Rhamnosus (Culturelle) 1 cap BID 05/23/20 21:00 05/25/20 07:24 DC 05/24/20 21:02 1 CAP Lidocaine HCl (Lidocaine Pf 2% Vial) 5 ml STK-MED ONCE 05/22/20 07:51 05/22/20 07:51 DC Losartan Potassium (Cozaar) 50 mg DAILY 05/24/20 09:00 05/25/20 08:23 50 MG Ondansetron HCl (Zofran) 4 mg PRN Q8HRS PRN 05/20/20 14:30 05/21/20 14:29 DC Piperacillin Sod/ Tazobactam Sod 3.375 gm/Sodium Chloride 50 ml @ 100 mls/hr Q6HRS 05/22/20 10:00 05/25/20 06:21 100 MLS/HR Propofol (Diprivan) 200 mg STK-MED ONCE 05/22/20 07:51 05/22/20 07:51 DC Rifampin (Rifadin) 300 mg BID 05/24/20 11:30 05/25/20 08:23 300 MG Ringer's Solution 1,000 ml @ 75 mls/hr [id number] 05/22/20 08:00 05/24/20 07:47 DC 05/24/20 01:53 75 MLS/HR Rivaroxaban (Xarelto) 10 mg DAILYWSUP 05/23/20 17:00 05/25/20 07:24 DC 05/24/20 18:27 10 MG Tamsulosin HCl (Flomax) 0.8 mg DAILY 05/24/20 09:00 05/25/20 08:23 0.8 MG Vancomycin HCl 250 ml @ 250 mls/hr 1X ONCE 05/20/20 12:45 05/20/20 13:44 DC 05/20/20 13:21 250 MLS/HR Vitamin D (Vitamin D3) 1,000 unit DAILY 05/21/20 09:00 05/25/20 07:24 DC 05/24/20 08:02 1,000 UNIT Labs: Micro RUN DATE: 05/24/20 [facility] LAB *LIVE* PAGE 1 RUN TIME: 932 Specimen Inquiry PATIENT: LITTLE FRANCO ACCT: [id number] LOC: [address] [place] [address] U: [id number] AGE/SX: 69/M ROOM: 424 RE05/20/[address]: LITTLE MCCORD MD : 1950 BED: 1 DIS: STATUS: ADM IN TLOC: SPEC #: [id number] [place]: 05/22/20 STATUS: RES REQ #: [id number] RECD: 05/22/[address] [facility] DR: LITTLE MCCORD MD SOURCE: TISSUE ENTR: 05/22/[address] [facility] [address]: JOHNATHON LIM II, MD [facility]: ABSCESS JESSICA NAYLOR MD, VENKAT R M D ORDERED: ANAER/AERPREMA/STEPHON COMMENTS: LT LOWER LEG TISSUE Procedure Result GRAM STAIN Final Final NO ORGANISMS SEEN. RBC:MANY SQUAMOUS EPI CELL:NOT APPLICABLE PMN (WBCs):NONE SEEN Unless otherwise specified, Testing Performed by: [address] [address] For Inquires, the Physician may contact the Microbiology department at [phone] ANAEROBIC-AEROBIC CULTURE Preliminary Preliminary MANY GRAM POSITIVE COCCI on 05/24/20 at 0928 FINAL ID= [STAPHYLOCOCCUS AUREUS] MICRO CHARGES STAPHYLOCOCCUS AUREUS Unless otherwise specified, Testing Performed by: [address] [address] For Inquires, the Physician may contact the Microbiology department at [phone] Objective: Assessment: Left lower extremity medial abscess, staph aureus, S/P LLE I and D 05/22 cults staph aureus, YULIANA pending Intraoperative findings reviewed, LLE cellulitis improving History of left tib-fib fracture status post intramedullary nail June 2019 History of left greater saphenous ablation December 2019 History of left lower extremity DVT, now off Coumadin. Hypertension CKD Prostate enlargement with bilateral Hydronephrosis Right upper extremity swelling at previous IV site likely superficial thrombophlebitis Plan: Plan of Care Continue daptomycin , prescription in chart SW assisting with home dc antibiotics YULIANA is of staph aureus pending at this time Continue empiric rifampin due to hardware in place Rationale of antibiotic use were discussed Side effects of antibiotics discussed at length possibility of failure discussed due to hw in place Weekly labs q Saturday CBC/BUN/Creatinine/CRP/CPK/LFTs;Fax results to [phone] Duration of antibiotics depends on clinical response PICC line PICC pot liner and complications discussed Ultrasound right upper extremity rule out DVT Monitor right upper extremity closely, ice pack application Will obtain MRI left lower extremity as outpatient F/U ID clinic on June 08 ,ph [phone] LUIS VINCENT MD May 25, 2020 09:09
--- NOTE | 2020-05-25 09:25 | NUR ---
MRI scheduled for LLE. 05/26 @ [address] [facility].
[2020-05-25] MEDS: DAPTOmycin (GENERIC) IVPB 490 MG in IV NORMAL SALINE 50ML 50 ML IV SCH (10:08)
--- NOTE | 2020-05-25 11:04 | NUR ---
Dr. Mckee paged re: clot in R bacilic vein. Dr. Patsy Alfaro notified, stated to inform Dr. Mckee.
[2020-05-25 11:09] VITALS: BP 119/64
--- NOTE | 2020-05-25 11:48 | RAD ---
Examination: Ultrasound right upper extremity venous duplex HISTORY: History of right arm swelling COMPARISON: None available TECHNIQUE: Grayscale, color 2-D, spectral waveform analysis of the right upper extremity venous duplex ultrasound performed. FINDINGS: The visualized internal jugular vein, subclavian vein, cephalic vein, axillary vein, brachial vein, radial, ulnar veins are patent. There is nonocclusive echogenicity identified in the right basilic vein extending from the mid upper arm to the wrist likely superficial vein thrombosis. IMPRESSION: 1. Superficial vein thrombosis identified in the right basilic vein extending from the mid upper arm to the level of the wrist. Electronically signed by: Jorge Kim MD (05/25/2020 11:45 AM) [id number]
[2020-05-25] MEDS ORDERED: LIDOCAINE WITH 8.4% SOD BICARB 3 ML DISP.SYRIN. ONE (13:42)
[2020-05-25] MEDS ORDERED: LIDOCAINE WITH 8.4% SOD BICARB 3 ML DISP.SYRIN. INJ ONE (14:00)
--- NOTE | 2020-05-25 14:41 | RAD ---
EXAM: CHEST 1 VIEW History: PICC line placement COMPARISON: None available. TECHNIQUE: Single portable radiograph of the chest Findings/ impression: The cardiac silhouette is unremarkable. Left-sided PICC line identified with the tip projecting in the region of the SVC. Mild prominent bilateral interstitial lung markings could be chronic interstitial changes. Electronically signed by: Jorge Kim MD (05/25/2020 2:37 PM) [id number]
[2020-05-25 14:52] VITALS: BP 148/83
--- NOTE | 2020-05-25 15:40 | NUR ---
Pt. discharged to home with rx, verbalized understanding of discharge instructions. ALEKSANDER drsg CDI, ELYSE picc line CDI, amato with leg bag intact. Rifampin 300mg PO BID x 2 weeks called to pt's pharmacy.
[2020-05-25] MEDS ORDERED: RIVAROXABAN 10 MG TABLET. PO SCH (17:00)
[2020-05-26] MEDS ORDERED: TAMS0.4C97 PO (06:49)
[2020-05-26] MEDS ORDERED: RIVA20TA2 PO (06:49)
--- NOTE | 2020-05-26 09:08 | RAD ---
Procedure: Upper extremity PICC line placement with ultrasound guidance Clinical Indication: Adult male requiring long-term venous access Sedation: Local anesthesia only was provided Antibiotics: None Fluoro Time: None Contrast: None Sterility: All elements of maximal sterile barrier technique including the use of a cap, mask, sterile gown, sterile gloves, large sterile sheet, appropriate hand hygiene, and 2% chlorhexidine for cutaneous antisepsis (or acceptable alternative antiseptic per current guidelines) were followed for this procedure. Consent: The procedure was explained in its entirety to the patient or the patients designated corporate sales representative by a member of the treatment team, including a discussion of the risks, benefits and commonly accepted alternatives to the procedure, as well as the expected consequences of no therapy whatsoever. Discussion of the risks included, but was not limited to, those that are most frequent and those that are rare but possibly severe or life-threatening, as well as the possibility of unforeseen complications. Technique and Findings: Following informed consent, the patient was prepped and draped in the usual sterile fashion. Ultrasound interrogation of the left arm revealed patency and compressibility of left brachial veins. A hard copy ultrasound image was recorded. 1% Lidocaine was used to achieve local anesthesia and a 21-gauge micropuncture needle was used to gain access to the targeted vein. The needle was exchanged over wire for a 5 Sami peel-away sheath which was used to deploy a PICC line under to the expected location of the cavoatrial junction. The catheter flushed and aspirated with ease and was sutured to the skin. Chest x-ray was obtained to assess for line position. Complications: No immediate Impression: 1. Ultrasound guided PICC line placement as described.
== END 2020-05-25 15:30 | disposition home or self-care (01) | DRG 571 ==
LOC: ER 10:11 → 4 NORTH 14:42
PROVIDERS: ADMIT Family Medicine; ATTEND Family Medicine
PROC: 0JBP0ZZ Excision of Left Lower Leg Subcutaneous Tissue and Fascia, Open Approach (ICD-10-PCS; principal; 2020-05-22 10:00)
PROC: 02HV33Z Insertion of Infusion Device into Superior Vena Cava, Percutaneous Approach (ICD-10-PCS; 2020-05-25)
PROC: B548ZZA Ultrasonography of Superior Vena Cava, Guidance (ICD-10-PCS; 2020-05-25)
DX: L03.116 Cellulitis of left lower limb (principal); I82.619 Acute embolism and thrombosis of superficial veins of unspecified upper extremity; N13.30 Unspecified hydronephrosis; N18.4 Chronic kidney disease, stage 4 (severe); I82.432 Acute embolism and thrombosis of left popliteal vein; L02.416 Cutaneous abscess of left lower limb; I12.9 Hypertensive chronic kidney disease with stage 1 through stage 4 chronic kidney disease, or unspecified chronic kidney disease; N40.0 Benign prostatic hyperplasia without lower urinary tract symptoms; R32 Unspecified urinary incontinence; Z82.49 Family history of ischemic heart disease and other diseases of the circulatory system; Z86.718 Personal history of other venous thrombosis and embolism; Z86.72 Personal history of thrombophlebitis; Z20.828 Contact with and (suspected) exposure to other viral communicable diseases; B95.61 Methicillin susceptible Staphylococcus aureus infection as the cause of diseases classified elsewhere
CPT/HCPCS: 36415; 36573; 71045; 73590; 76770; 80048; 80053; 81001; 82550; 85025; 86140; 87015; 87071; 87075; 87102; 87116; 87176; 93971; 96365; 96367; 99285; A7015; C1751; C1892; G0103; J0690; J0878; J2543; J2704; J3010; J3370; J3490; J7120; G0378; U0003-CS

== ENCOUNTER → 2020-05-26 | Outpatient (CLI) | payer MEDICARE ==
[~2020-05-26] MED LIST changes: +OMEG1CAP50 PO; +RIVA20TA2 PO; +TAMS0.4C97 PO
[2020-05-26 07:55] VITALS: BP 187/93
--- NOTE | 2020-05-26 10:56 | KCIC ---
Examination: MRI of the left tibia and fibula without contrast HISTORY: Left lower extremity abscess, post irrigation, debridement COMPARISON: Radiograph from 05/20/2020 TECHNIQUE: Multiplanar, multisequence MR imaging of the left tibia and fibula was performed without contrast. FINDINGS: Intramedullary andrew artifact in the tibia limits evaluation transfixing the distal diaphyseal tibial fracture. There is a fluid collection extending medially from the posterior aspect of the distal tibia into the soft tissue in the subcutaneous region measuring 2.2 x 1.6 cm possibly an abscess extending to the posterior aspect of the tibia.. Fracture of the distal fibular diaphysis is again identified. Increased T2 signal identified in the soft tissue of the lower leg likely edema. IMPRESSION: 1.There is a fluid collection extending medially from the posterior aspect of the distal tibia into the soft tissue and into the subcutaneous region measuring 2.2 x 1.6 cm possibly an abscess extending to the posterior aspect of the tibia due to underlying distal tibial diaphysis osteomyelitis, examination is limited due to lack of IV contrast. Electronically signed by: Jorge Kim MD (05/26/2020 10:53 AM) [id number]
--- NOTE | 2020-05-27 08:25 | NUR ---
Pt. arrives via POV for outpt Daptomycin. Vital signs 181/107 (states blood pressure medication was recently reduced for low blood pressure and d/t follow up with Dr. Mckee) , 98.6F, HR 77, SPO2 100%, R16. Pt. with double lumen PICC line to L upper arm, flushed without difficulty. Pt. informed of wait for medication from pharmacy. Pt. denies other complaints and needs.
== END | disposition home or self-care (01) ==
LOC: KCIC MRI 09:10
PROVIDERS: ATTEND Internal Medicine Infectious Disease
DX: L02.416 Cutaneous abscess of left lower limb (principal); M86.8X6 Other osteomyelitis, lower leg; S82.392D Other fracture of lower end of left tibia, subsequent encounter for closed fracture with routine healing; X58.XXXD Exposure to other specified factors, subsequent encounter
CPT/HCPCS: 73718

== ENCOUNTER → 2020-06-07 | Outpatient (CLI) | payer MEDICARE ==
[2020-06-06 08:17] VITALS: BP 127/70
== END | disposition home or self-care (01) ==
LOC: SPEC 12:42
PROVIDERS: ATTEND Orthopaedic Surgery Sports Medicine
DX: S82.252D Displaced comminuted fracture of shaft of left tibia, subsequent encounter for closed fracture with routine healing (principal); X58.XXXD Exposure to other specified factors, subsequent encounter
CPT/HCPCS: 87071; 87075

== ENCOUNTER 2020-12-05 15:22 | Inpatient (IN) | payer MEDICARE ==
[~2020-12-05] VITALS: Ht 185.4 cm; Wt 81.6 kg
[~2020-12-05 15:22] MED LIST changes: -CYAN50008 PO; +CYAN50009 PO
[2020-12-05 18:48] LABS: BASO # 0.1 x10^3/uL (0.0-0.2); BASO % 1 % (0-3); EOS # 0.2 x10^3/uL (0.0-0.7); EOS % 3 % (0-3); HEMATOCRIT 44.1 % (39.0-53.0); HEMOGLOBIN 15.2 g/dL (13.0-17.5); LYMPH # 1.4 x10^3/uL (1.0-4.8); LYMPH % 24 % (24-48); MEAN CORPUSCULAR HEMOGLOBIN 33 pg (25-35); MEAN CORPUSCULAR HGB CONC 34 g/dL (31-37); MEAN CORPUSCULAR VOLUME 97 fL (79-100); MONO # 0.4 x10^3/uL (0.0-1.1); MONO % 7 % (0-9); NEUT # 3.9 x10^3/uL (1.8-7.7); NEUT % 65 % (31-73); PLATELET COUNT 295 x10^3/uL (140-400); RED BLOOD COUNT 4.54 x10^6/uL (4.30-5.70); RED CELL DISTRIBUTION WIDTH 13.2 % (11.5-14.5)
[2020-12-05 18:57] LABS: ALBUMIN 3.6 g/dL (3.4-5.0); ALBUMIN/GLOBULIN RATIO 1.3 (1.0-1.7); CALCIUM 8.4 mg/dL (8.5-10.1); GFR 33.4; POTASSIUM 4.3 mmol/L (3.5-5.1); TOTAL BILIRUBIN 0.4 mg/dL (0.2-1.0); TOTAL PROTEIN 6.4 g/dL (6.4-8.2)
[2020-12-05 19:00] VITALS: BP 134/84
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
--- NOTE | 2020-12-05 20:20 | RAD ---
XR LT TIBIA + FIBULA History: Reason: wound / Spl. Instructions: / History: Technique: 2 views left tibia and fibula. Comparison: May 20, 2020 Findings: Internal fixation distal tibial healing fracture with intramedullary andrew and screw. Distal fibular he aling fracture, unchanged alignment. No radiographic evidence of osteomyelitis. Distal leg soft tissu e swelling. Tiny plantar calcaneal spur. Impression: 1. Left distal tibia and fibula healing fractures, unchanged alignment. 2. No radiographic evidence of osteomyelitis. If persistent clinical concern, MRI can further evalua te. 3. Lower extremity soft tissue swelling. Electronically signed by: Janusz Clifford DO (12/05/2020 8:17 PM) [facility]IV[facility]
[2020-12-05 22:51] VITALS: BP 142/80
[2020-12-06 02:52] VITALS: BP 140/79
[2020-12-06 07:00] VITALS: BP 131/78
[2020-12-06] MEDS: CALCIUM CARBONATE 500 MG TABLET PO SCH ×2 (08:00→08:23)
[2020-12-06] MEDS: CHOLECALCIFEROL (VITAMIN D3) 1,000 UNIT TABLET PO SCH ×2 (08:23→08:26)
[2020-12-06] MEDS: CYANOCOBALAMIN (VITAMIN B-12) 1,000 MCG TABLET. PO SCH ×2 (08:24→08:26)
[2020-12-06] MEDS: TAMSULOSIN 0.4 MG CAP.ER.24H. PO SCH ×2 (08:24→08:26)
[2020-12-06] MEDS: LOSARTAN POTASSIUM 50 MG TABLET. PO SCH ×2 (08:24→08:26)
--- NOTE | 2020-12-06 09:00 | PDOC ---
Provider Note Date of Service: DATE: 12/06/20 TIME: 08:59 Provider Note no temp, labs ok/ grams stain pending as is cult- xr ok, esr ok- ID opinion pending Justifications for Admission Other Justification LITTLE MCCORD MD Dec 06, 2020 09:00
--- NOTE | 2020-12-06 09:42 | NUR ---
SW following. Discussed with RN, pt from home with , room air, regular diet, ad brigitte. Wound cultures pending, ID consulted. SW will continue to follow.
[2020-12-06 11:00] VITALS: BP 110/64
[2020-12-06] MEDS: CEFEPIME HCL IV Push 2 GM VIAL. IVP SCH ×2 (12:15→20:55)
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
--- NOTE | 2020-12-06 14:56 | NUR ---
Wound Care: Dressing has been changed today, pt awaiting to see Dr. Gil for further POC. Wound care will see patient tomorrow for further assessment.
[2020-12-06 15:00] VITALS: BP 133/77
[2020-12-06] MEDS: DAPTOmycin (GENERIC) IVPB 500 MG in IV NORMAL SALINE 50ML 50 ML IV SCH (15:05)
[2020-12-06 19:25] VITALS: BP 136/88
[2020-12-06 23:14] VITALS: BP 141/85
[2020-12-07 02:59] VITALS: BP 130/82
[2020-12-07 07:00] VITALS: BP 157/76
[2020-12-07] MEDS: CHOLECALCIFEROL (VITAMIN D3) 1,000 UNIT TABLET PO SCH (08:39)
[2020-12-07] MEDS: TAMSULOSIN 0.4 MG CAP.ER.24H. PO SCH (08:39)
[2020-12-07] MEDS: CEFEPIME HCL IV Push 2 GM VIAL. IVP SCH ×2 (08:39→21:27)
[2020-12-07] MEDS: LOSARTAN POTASSIUM 50 MG TABLET. PO SCH (08:40)
[2020-12-07] MEDS: CALCIUM CARBONATE 500 MG TABLET PO SCH (08:40)
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
[2020-12-07] MEDS: CYANOCOBALAMIN (VITAMIN B-12) 1,000 MCG TABLET. PO SCH (08:54)
--- NOTE | 2020-12-07 08:59 | PDOC ---
Provider Note Date of Service: DATE: 12/07/20 TIME: 08:58 Provider Note grams stain neg, cult pending- he is now considering hardware removal so will hold proph xarelto until surg plan made Justifications for Admission Other Justification LITTLE MCCORD MD Dec 07, 2020 08:59
--- NOTE | 2020-12-07 09:36 | NUR ---
SW following. Discussed with RN, pt from home with , room air, regular diet, ad brigitte. Pt on dapto and cefepime. Discussion about possibly surgery - decision has not been made yet. SW will continue to follow.
[2020-12-07 11:00] VITALS: BP 134/81
--- NOTE | 2020-12-07 14:21 | NUR ---
Wound care: Attempted to see patient again today for wound care. Pt stated dressing again had already been changed today. Pt stated he is awaiting for approval for MRI and for Dr. Gil to come see him. Wound is small with minimal drainage, pt stated he did not need the dressing changed again. Wound care will wait for MRI results and further POC from Dr. Gil. Family at bedside.
[2020-12-07] MEDS: DAPTOmycin (GENERIC) IVPB 500 MG in IV NORMAL SALINE 50ML 50 ML IV SCH (14:53)
[2020-12-07 15:00] VITALS: BP 130/74
[2020-12-07 19:00] VITALS: BP 152/86
--- NOTE | 2020-12-07 19:21 | PDOC ---
PROGRESS NOTES Date of Service DATE: 12/07/20 TIME: 19:18 Subjective Subjective Still draining Objective Vital Signs Vital Signs Date Time Temp Pulse Resp B/P (MAP) Pulse Ox O2 Delivery O2 Flow Rate FiO2 12/07/20 15:00 98.1 67 18 130/74 (92) 96 98.1 12/07/20 11:00 Room Air Physical Exam unchanged Imaging I reviewed the MRI images. The report is not yet available. There is a superficial abscess which connects with the posterior aspect of the tibia and likely with the nail as well. Series 12 image 34 shows the abscess and the sinus tract to the bone reasonably well. Series 11 image 12 shows the area where the bone should have debridement and resection. It is fortunately a very small area of bone involvement. Assessment Assessment POD# Plan Plan of Care I was able to review records from [place]. This is a [employer] tibial nail. I have requested the removal set for [employer]. Planning surgery at 4:30 PM on . Hardware removal of the nail and associated screws, and also open incision and drainage and bone debridement. Patient agrees with that plan. Justicifation of Admission Dx: Justifications for Admission: Justification of Admission Dx: Yes Cellulitis: Cellulitis JESICA JOSEPH MD Dec 07, 2020 19:21
[2020-12-07] MEDS: LACTOBACILLUS RHAMNOSUS GG 1 CAPSULE. PO SCH (21:26)
[2020-12-07 23:00] VITALS: BP 157/67
[2020-12-08] VITALS (11 sets, daily range): BP systolic 102–126; BP diastolic 36–75
[2020-12-08] MEDS: CHOLECALCIFEROL (VITAMIN D3) 1,000 UNIT TABLET PO SCH (09:00)
--- NOTE | 2020-12-08 09:00 | NUR ---
PATIENT CONSUMED 100% OF CLEAR LIQUID BREAKFAST, WILL ADMINISTER AM MEDICATIONS WELL THEN NPO FOR PROCEDURE AT 1630.
--- NOTE | 2020-12-08 09:06 | PDOC ---
Provider Note Date of Service: DATE: 12/08/20 TIME: 09:05 Provider Note culture neg so far- surg plan noted, will use xarelto as proph post op re prior dvt Justifications for Admission Other Justification LITTLE MCCORD MD Dec 08, 2020 09:06
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
--- NOTE | 2020-12-08 10:04 | RAD ---
MRI study of the left lower leg without contrast Clinical indications: History of trauma and internal fixation. Now has nonhealing wound. Distal left leg swelling. Evaluation for possible osteomyelitis. COMPARISON: Radiographic study dated December 05, 2020. TECHNIQUE: Noncontrast MRI sequences of the left lower leg were performed in all 3 planes. FINDINGS: There is a long metallic intramedullary andrew extending throughout the length of the left tib ia. There is paramagnetic stability artifact as a result. There is a healing fracture of the mid to d istal shaft of the tibia. There is cortical erosion and T1 signal abnormality of the posterior aspect of this fracture. There is a sinus tract seen extending medially from the posterior edge of the frac ture into the medial subcutaneous soft tissues. There is a medial subcutaneous round fluid collection which could represent a soft tissue abscess just deep to the skin surface. This abscess measures 14 mm in greatest AP or transverse dimension and 31 mm in greatest vertical dimension. At the same level , there is another sinus tract seen extending through the posterior lateral cortex of the distal tibi a. This sinus tract extends slightly into the adjacent musculature of the anterior compartment. These findings are best seen on series 6 image 34. There is abnormal T2 bone marrow edema within the intra medullary space here. The findings are consistent with osteomyelitis. A large portion of the fracture otherwise appears healed. There is a distal left fibular oblique fracture which is not completely he aled inferiorly. There is T2 bone marrow edema and soft tissue edema here best seen on coronal series 10 and 11 and image 11. No cortical erosion is seen here to indicate definite osteomyelitis but a si nus tract with edema seen extending inferiorly and medially best seen on series 10 image 12 is a conc erning. IMPRESSION: Osteomyelitis of distal left tibial fracture with 2 sinus tracts medially and laterally. The medial sinus tract extends through to the medial subcutaneous soft tissues with associated medial subcutaneous soft tissue abscess. Distal left fibular fracture which is not completely healed inferiorly. T2 bone marrow edema and brenda cent soft tissue edema is seen. Question of a developing sinus tract extending inferiorly and mediall y from this area. Electronically signed by: Dwayne Smith MD (12/08/2020 10:02 AM) [id number]
--- NOTE | 2020-12-08 10:16 | NUR ---
SW following. Discussed with RN, pt from home with , room air, clear liquid diet. Pt scheduled for surgery today at 1630. SW will continue to follow.
[2020-12-08] MEDS: CALCIUM CARBONATE 500 MG TABLET PO SCH (10:23)
[2020-12-08] MEDS: TAMSULOSIN 0.4 MG CAP.ER.24H. PO SCH (10:24)
[2020-12-08] MEDS: CYANOCOBALAMIN (VITAMIN B-12) 1,000 MCG TABLET. PO SCH (10:24)
[2020-12-08] MEDS: LOSARTAN POTASSIUM 50 MG TABLET. PO SCH (10:25)
[2020-12-08] MEDS: LACTOBACILLUS RHAMNOSUS GG 1 CAPSULE. PO SCH ×2 (10:25→20:46)
--- NOTE | 2020-12-08 10:40 | NUR ---
COVID-19 SWAB SENT ORDERED AND PER PROTOCOL, PATIENT TOLERATED PROCEDURE WITHOUT COMPLAINT.
[2020-12-08] MEDS ORDERED: BUPIVACAINE-EPI 0.25%-1:200000 MPF 30 ML VIAL. INJ ONE (14:00)
[2020-12-08] MEDS ORDERED: HYDROmorphone 2 MG/ML VIAL IV PRN (14:15)
[2020-12-08] MEDS ORDERED: IV RINGERS,LACTATED 1000ML 1,000 ML IV SCH (14:15)
[2020-12-08] MEDS ORDERED: MORPHINE SULFATE 2 MG/ML VIAL. IV PRN (14:15)
[2020-12-08] MEDS ORDERED: PROCHLORPERAZINE 10 MG/2 ML VIAL. IV PRN (14:15)
[2020-12-08] MEDS ORDERED: LIDOCAINE 1% PF 2 ML VIAL. ID PRN (14:15)
[2020-12-08] MEDS ORDERED: fentaNYL PF VIAL 100 MCG/2 ML VIAL IV PRN ×2 (14:15)
[2020-12-08] MEDS ORDERED: ONDANSETRON PF 4 MG/2 ML VIAL. IV PRN (14:15)
[2020-12-08] MEDS ORDERED: PROPOFOL 10 MG/ML (20ML) VIAL. IV ONE (14:30)
[2020-12-08] MEDS ORDERED: ONDANSETRON PF 4 MG/2 ML VIAL. ONE (14:30)
[2020-12-08] MEDS ORDERED: DEXAMETHASONE SOD PHOS 4 MG/ML VIAL ONE (14:30)
[2020-12-08] MEDS ORDERED: LIDOCAINE 2% PF 5 ML VIAL. ONE (14:30)
--- NOTE | 2020-12-08 16:30 | NUR ---
PATIENT LEAVES THE UNIT PER W/C AND ACCOMPANIED BY HIS , EMOTIONAL SUPPORT GIVEN.
[2020-12-08] MEDS ORDERED: fentaNYL PF VIAL 100 MCG/2 ML VIAL ONE (16:38)
[2020-12-08] MEDS ORDERED: MIDAZOLAM HCL/PF 2 MG/2 ML VIAL. ONE (16:38)
[2020-12-08] MEDS ORDERED: CLINDAMYCIN 900MG PREMIX 50 ML IV ONE (16:53)
[2020-12-08] MEDS: DAPTOmycin (GENERIC) IVPB 500 MG in IV NORMAL SALINE 50ML 50 ML IV SCH (17:22)
[2020-12-08] MEDS ORDERED: FAMOTIDINE 20 MG/2 ML VIAL ONE (17:28)
[2020-12-08] MEDS ORDERED: PHENYLEPHRINE in 0.9% NACL PF 1 MG/10 ML SYRINGE. IV ONE (17:33)
[2020-12-08] MEDS ORDERED: SEVOFLURANE 61 TO 120 MINUTES. IH ONE (18:15)
--- NOTE | 2020-12-08 18:56 | PDOC4 ---
Operative Note Operative Note Date of Procedure: December 08, 2020 Pre-Op Diagnosis: * Infection and inflammatory reaction due to internal fixation device of left tibia, initial encounter. T84. 623A * Subacute osteomyelitis, left tibia and fibula M86.262 Post-Op Diagnosis: * Infection and inflammatory reaction due to internal fixation device of left tibia, initial encounter. T84. 623A * Subacute osteomyelitis, left tibia and fibula M86.262 Procedure: * Removal of implant deep (e.g., buried wire, pin, screw, nail, andrew, or plate) left tibia CPT 78761 * Incision left leg, for osteomyelitis or bone abscess CPT 28711 Surgeon: Jesica Gil MD Anesthesia: General EBL: 200 mL Specimens Obtained: * Swab cultures of the left leg abscess. * Tissue culture in a specimen cup of the left leg abscess. Complications: none Drains: none Indications for Procedure: This patient is a 70-year-old man who had remote tibia fracture in 2018 which has healed. He had surgery for an abscess in the left leg in May 2020 and has remained on suppressive antibiotics since then. Despite that there is purulent drainage from the left leg near the hardware. MRI seems to show contact of the superficial abscess to the deep bone posteriorly. I recommended surgical incision and drainage along with hardware removal of all of the hardware. The patient and I discussed the risks, benefits and alternatives of surgery. I recommended hardware removal but I discussed the potential risks of refracture, infection, bleeding, blood clots, neurovascular injury, or other potential surgical or anesthetic complications. All of his questions were answered regarding surgery and his desired to proceed with surgery. Written consent was obtained. Procedure in Detail: The patient was identified in the preoperative holding area. The correct left leg was marked by me. The patient was taken to the ope rating room where general anesthetic was used. The patient was positioned supine on the operating table. Preoperative antibiotics were held until cultures were obtained. A timeout procedure was performed. A tourniquet was placed on the upper thigh but was never inflated. The limb was prepared circumferentially with ChloraPrep solution from the tourniquet to the toes and sterile drapes were applied. Sterile gloves were placed of the toes and heel. The area of tibial abscess was incised first along the distal medial tibial shaft. An 8 cm longitudinal incision was made, and some purulent drainage was noted. Swab cultures were taken, although there was some venous blood mixed with the abscess so cultures may be difficult to interpret. I did some further dissection with deep retractors, and followed the course of the abscess sinus tract on the MRI, to the posterior tibia. I used rongeurs to remove some discolored and likely purulent material and sent that for permanent specimen. I did debridement along the bone with a curette and with rongeurs, but there was no severe bone destruction. I believe the bone has involvement but minimally as seen on the MRI. Bovie electrocautery was used for hemostasis. Copious saline irrigation was used. Outer gloves were changed. The large image intensifier was used, and the C arm was brought in for images. All of the images were interpreted intraoperatively by me. Small skin incisions were made at the location of the 3 screw heads of the distal cross lock fixation. Hemostats were used for the ana and spread technique, until the screw heads were localized. The C-arm was used to help localize the screw heads. The 3 distal screws were removed using the screwdriver without difficulty. The large image intensifier was now used at the proximal aspect of the nail. The medial cross lock screw was removed after making a small skin incision and again a ana and spread technique with a hemostat. The lateral screw was removed at the same time as the nail was exposed. I used the previous lateral skin incision along the lateral aspect of the patellar tendon, and incised this sharply with a 10 blade scalpel. Bovie electrocautery was used for hemostasis. Careful dissection was performed with a scalpel and with electrocautery, and the patellar tendon was carefully elevated. The large image intensifier was used and the proximal aspect of the nail was identified. Tissue within the threads of the nail canal was cleared with a hemostat and with a dental pick. The proximal lateral cross lock screw was now identified, and a screwdriver was used to remove the screw partially, but not completely so that the nail would not spin during insertion of the nail removal device. The nail removal device was now screwed into the proximal aspect of the nail. The lateral cross lock screw was now removed completely. The slaphammer device was attached to the nail removal device, and the tibial nail was back slapped and removed without difficulty. Copious saline irrigation was used at all of the incisions and in the intramedullary canal. The incisions were now closed in layers. I used #1 Vicryl in a [id number] fashion in the fascia at the lateral patellar tendon. The subcutaneous tissues were closed with 2-0 Vicryl plus inverted interrupted sutures. [place] were placed in the skin. Needle and sponge counts were correct. There were no apparent complications. Xeroform and sterile dressings were applied. JESICA GIL MD Dec 08, 2020 18:56
[2020-12-08] MEDS ORDERED: oxyCODONE/APAP 10/325 1 TAB TABLET PO PRN (19:00)
[2020-12-08] MEDS: oxyCODONE/APAP 10/325 1 TAB TABLET PO PRN (20:46)
[2020-12-08] MEDS: CEFEPIME HCL IV Push 2 GM VIAL. IVP SCH (20:46)
[2020-12-09 02:52] VITALS: BP 96/52
[2020-12-09] MEDS: oxyCODONE/APAP 10/325 1 TAB TABLET PO PRN ×3 (03:24→21:45)
[2020-12-09] MEDS ORDERED: CLINDAMYCIN 900MG PREMIX 50 ML IV PRN (06:00)
[2020-12-09 07:00] VITALS: BP 115/61
--- NOTE | 2020-12-09 08:17 | PDOC ---
Provider Note Date of Service: DATE: 12/09/20 TIME: 08:16 Provider Note NO TEMP , CULT NEG- LABS OK- ON MEDS RE CHRONIC OSTEO/PROR mssa- add proph xarelto now as he has had dvt issues in past Justifications for Admission Other Justification LITTLE MCCORD MD Dec 09, 2020 08:17
[2020-12-09] MEDS ORDERED: ANTI-COAG MONITOR BY PHARMACY. MC PRN ×2 (08:30→15:00)
[2020-12-09] MEDS: RIVAROXABAN 10 MG TABLET. PO SCH (08:51)
[2020-12-09] MEDS: CHOLECALCIFEROL (VITAMIN D3) 1,000 UNIT TABLET PO SCH (08:51)
[2020-12-09] MEDS: TAMSULOSIN 0.4 MG CAP.ER.24H. PO SCH (08:51)
[2020-12-09] MEDS: CYANOCOBALAMIN (VITAMIN B-12) 1,000 MCG TABLET. PO SCH (08:51)
[2020-12-09] MEDS: LOSARTAN POTASSIUM 50 MG TABLET. PO SCH (08:51)
[2020-12-09] MEDS: CEFEPIME HCL IV Push 2 GM VIAL. IVP SCH ×2 (08:52→21:32)
[2020-12-09] MEDS: CALCIUM CARBONATE 500 MG TABLET PO SCH (08:52)
[2020-12-09] MEDS: LACTOBACILLUS RHAMNOSUS GG 1 CAPSULE. PO SCH ×2 (08:52→21:32)
--- NOTE | 2020-12-09 09:35 | NUR ---
SW following. Discussed with RN, pt from home with , room air, regular diet, Rapid COVID-19 negative. Pt had surgery on 12/08/20. PT/OT being ordered today. SW will continue to follow.
[2020-12-09 11:00] VITALS: BP 103/57
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
[2020-12-09 15:00] VITALS: BP 120/60
[2020-12-09] MEDS ORDERED: RIVAROXABAN 10 MG TABLET. PO SCH (17:00)
[2020-12-09] MEDS: DAPTOmycin (GENERIC) IVPB 500 MG in IV NORMAL SALINE 50ML 50 ML IV SCH (18:57)
[2020-12-09 19:00] VITALS: BP 118/65
[2020-12-09 23:00] VITALS: BP 122/56
[2020-12-10 03:00] VITALS: BP 108/50
[2020-12-10 07:00] VITALS: BP 134/71
[2020-12-10] MEDS: LOSARTAN POTASSIUM 50 MG TABLET. PO SCH (08:47)
[2020-12-10] MEDS: CHOLECALCIFEROL (VITAMIN D3) 1,000 UNIT TABLET PO SCH (08:47)
[2020-12-10] MEDS: oxyCODONE/APAP 10/325 1 TAB TABLET PO PRN ×2 (08:47→20:37)
[2020-12-10] MEDS: CALCIUM CARBONATE 500 MG TABLET PO SCH (08:47)
[2020-12-10] MEDS: LACTOBACILLUS RHAMNOSUS GG 1 CAPSULE. PO SCH ×2 (08:47→20:37)
[2020-12-10] MEDS: CEFEPIME HCL IV Push 2 GM VIAL. IVP SCH ×2 (08:48→20:36)
[2020-12-10] MEDS: RIVAROXABAN 10 MG TABLET. PO SCH (08:48)
[2020-12-10] MEDS: TAMSULOSIN 0.4 MG CAP.ER.24H. PO SCH (08:48)
[2020-12-10] MEDS: CYANOCOBALAMIN (VITAMIN B-12) 1,000 MCG TABLET. PO SCH (08:48)
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
[2020-12-10 11:00] VITALS: BP 113/69
[2020-12-10 15:00] VITALS: BP 114/60
--- NOTE | 2020-12-10 16:19 | PN ---
DATE: 12/10/2020 LOCATION: He is in room 418. SUBJECTIVE: The patient currently denies any significant complaints other than difficulties getting off his hospital gown and then to some shorts, which I helped him with during the exam. He states he overall feels pretty good and wants to get out of the hospital sometime soon. OBJECTIVE: VITAL SIGNS: Stable. T-max is 99.6. Cultures to date are negative. CHEST: Clear. HEART: Regular. ABDOMEN: Benign EXTREMITIES: Left leg is dressed. LABORATORY DATA: Creatinine is 2 on admission, I am not sure of his baseline, but we will recheck in the morning, given he came in with osteomyelitis. IMPRESSION: 1. Osteomyelitis of the left leg with removal of hardware. 2. History of methicillin-susceptible Staphylococcus aureus abscess and cellulitis on the same extremity. 3. Hypertension. 4. Benign prostatic hypertrophy, chronic versus acute kidney disease. PLAN: Continue present antibiotics. ID help appreciated. We will check BMP in the morning. DINORA SANCHEZ MD DR: KUSHAL/christa JOB#: [id number] / [id number]
[2020-12-10 19:00] VITALS: BP 135/55
[2020-12-10] MEDS: DAPTOmycin (GENERIC) IVPB 500 MG in IV NORMAL SALINE 50ML 50 ML IV SCH (19:06)
[2020-12-10 23:21] VITALS: BP 116/61
[2020-12-11 03:15] VITALS: BP 110/59
[2020-12-11 07:00] VITALS: BP 118/70
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
--- NOTE | 2020-12-11 09:21 | RAD ---
EXAMINATION: XR CHEST 1V CLINICAL HISTORY: PICC line placement EXAM DATE/TIME: 12/11/2020 8:55 AM COMPARISON: 05/25/2020 FINDINGS: Lines, Tubes, and Devices: Right upper extremity PICC terminating in the mid to lower superior vena c ruben. Cardiomediastinal Silhouette: Normal heart size. Aortic atherosclerotic calcification. Lungs and Pleura: No evidence of focal airspace consolidation or pleural effusion. Minimal bibasilar subsegmental atelectasis and/or scarring, similar to prior study. Pulmonary vasculature unremarkable. Bones and Soft Tissues: Degenerative changes of the thoracic spine. IMPRESSION: No evidence of acute cardiopulmonary abnormality. Right upper extremity PICC in satisfactory position. Electronically signed by: Mitul Barrera DO (12/11/2020 9:18 AM) [id number]
[2020-12-11] MEDS: RIVAROXABAN 10 MG TABLET. PO SCH (10:05)
[2020-12-11] MEDS: LOSARTAN POTASSIUM 50 MG TABLET. PO SCH (10:05)
[2020-12-11] MEDS: LACTOBACILLUS RHAMNOSUS GG 1 CAPSULE. PO SCH (10:05)
[2020-12-11] MEDS: CHOLECALCIFEROL (VITAMIN D3) 1,000 UNIT TABLET PO SCH (10:05)
[2020-12-11] MEDS: CALCIUM CARBONATE 500 MG TABLET PO SCH (10:06)
[2020-12-11] MEDS: TAMSULOSIN 0.4 MG CAP.ER.24H. PO SCH (10:06)
[2020-12-11] MEDS: CYANOCOBALAMIN (VITAMIN B-12) 1,000 MCG TABLET. PO SCH (10:06)
[2020-12-11] MEDS: CEFEPIME HCL IV Push 2 GM VIAL. IVP SCH (10:07)
[2020-12-11] MEDS: oxyCODONE/APAP 10/325 1 TAB TABLET PO PRN ×2 (10:07→18:03)
[2020-12-11 10:50] LABS: ALBUMIN 3.1 g/dL (3.4-5.0); ALBUMIN/GLOBULIN RATIO 0.9 (1.0-1.7); CALCIUM 8.6 mg/dL (8.5-10.1); GFR 33.4; POTASSIUM 4.2 mmol/L (3.5-5.1); TOTAL BILIRUBIN 0.8 mg/dL (0.2-1.0); TOTAL PROTEIN 6.4 g/dL (6.4-8.2)
[2020-12-11 11:00] VITALS: BP 133/61
[2020-12-11 11:15] LABS: BASO % 1 % (0-3); EOS # 0.2 x10^3/uL (0.0-0.7); EOS % 3 % (0-3); HEMATOCRIT 43.5 % (39.0-53.0); HEMOGLOBIN 15.1 g/dL (13.0-17.5); LYMPH # 0.7 x10^3/uL (1.0-4.8); LYMPH % 12 % (24-48); MEAN CORPUSCULAR HEMOGLOBIN 34 pg (25-35); MEAN CORPUSCULAR HGB CONC 35 g/dL (31-37); MEAN CORPUSCULAR VOLUME 97 fL (79-100); MONO # 0.6 x10^3/uL (0.0-1.1); MONO % 10 % (0-9); NEUT # 4.2 x10^3/uL (1.8-7.7); NEUT % 74 % (31-73); PLATELET COUNT 195 x10^3/uL (140-400); RED BLOOD COUNT 4.49 x10^6/uL (4.30-5.70); RED CELL DISTRIBUTION WIDTH 13.4 % (11.5-14.5); WHITE BLOOD COUNT 5.7 x10^3/uL (4.0-11.0)
--- NOTE | 2020-12-11 11:26 | PDOC ---
PROGRESS NOTES Date of Service DATE: 12/11/20 TIME: 11:25 Subjective Subjective Doing well. He now has a PICC line Objective Vital Signs Vital Signs Date Time Temp Pulse Resp B/P (MAP) Pulse Ox O2 Delivery O2 Flow Rate FiO2 12/11/20 11:00 97.9 63 20 133/61 (85) 94 Room Air 97.9 12/11/20 03:15 96.0 Physical Exam Dressings removed. Slight bloody drainage at the proximal incision is consistent with surgery in that location. No erythema or concerning drainage from any incision. Stapled incisions are intact distally. No evidence of DVT on examination. Labs Laboratory Tests Test 12/11/20 10:25 Sodium Level 138 mmol/L (136-145) Potassium Level 4.2 mmol/L (3.5-5.1) Chloride Level 104 mmol/L (98-107) Carbon Dioxide Level 29 mmol/L (21-32) Anion Gap 5 (6-14) Blood Urea Nitrogen 29 mg/dL (8-26) Creatinine 2.0 mg/dL (0.7-1.3) Estimated GFR (Cockcroft-Gault) 33.4 BUN/Creatinine Ratio 15 (6-20) Glucose Level 121 mg/dL (70-99) Calcium Level 8.6 mg/dL (8.5-10.1) Total Bilirubin 0.8 mg/dL (0.2-1.0) Aspartate Amino Transf (AST/SGOT) 17 U/L (15-37) Alanine Aminotransferase (ALT/SGPT) 30 U/L (16-63) Alkaline Phosphatase 66 U/L (46-116) Creatine Kinase 176 U/L (39-308) Total Protein 6.4 g/dL (6.4-8.2) Albumin 3.1 g/dL (3.4-5.0) Albumin/Globulin Ratio 0.9 (1.0-1.7) Laboratory Tests Test 12/11/20 10:25 Sodium Level 138 mmol/L (136-145) Potassium Level 4.2 mmol/L (3.5-5.1) Chloride Level 104 mmol/L (98-107) Carbon Dioxide Level 29 mmol/L (21-32) Anion Gap 5 (6-14) Blood Urea Nitrogen 29 mg/dL (8-26) Creatinine 2.0 mg/dL (0.7-1.3) Estimated GFR (Cockcroft-Gault) 33.4 BUN/Creatinine Ratio 15 (6-20) Glucose Level 121 mg/dL (70-99) Calcium Level 8.6 mg/dL (8.5-10.1) Total Bilirubin 0.8 mg/dL (0.2-1.0) Aspartate Amino Transf (AST/SGOT) 17 U/L (15-37) Alanine Aminotransferase (ALT/SGPT) 30 U/L (16-63) Alkaline Phosphatase 66 U/L (46-116) Creatine Kinase 176 U/L (39-308) Total Protein 6.4 g/dL (6.4-8.2) Albumin 3.1 g/dL (3.4-5.0) Albumin/Globulin Ratio 0.9 (1.0-1.7) Assessment Assessment Status post hardware removal and I&D for osteomyelitis and infected hardware. Plan Plan of Care Continue intravenous antibiotics per infectious disease. Dressing changes every 1 to 2 days. Keep incisions dry. May weight-bear as tolerated in a Cam walker. Office follow-up with me in about 10 days. I sent prescriptions to [facility] for Percocet 5/325 and for Xarelto 20 mg daily for 30 days. Justicifation of Admission Dx: Justifications for Admission: Justification of Admission Dx: Yes Cellulitis: Cellulitis JESICA JOSEPH MD Dec 11, 2020 11:26
[2020-12-11] MEDS ORDERED: ERTAPENEM 1GM IVPB(GENERIC) NS 50 ML IV ONE (14:30)
[2020-12-11 15:00] VITALS: BP 142/75
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
[2020-12-11] MEDS ORDERED: POLYETHYLENE GLYCOL 3350 17 GM PACKET. PO PRN (15:15)
[2020-12-11] MEDS: DAPTOmycin (GENERIC) IVPB 500 MG in IV NORMAL SALINE 50ML 50 ML IV SCH (17:00)
--- NOTE | 2020-12-11 22:58 | PN ---
DATE: 12/11/2020 LOCATION: He is in room 418. SUBJECTIVE: This 70-year-old white male remains hospitalized for infection in his left leg. He has had all the hardware removed from prior surgeries from the same. He overall feels pretty well and Dr. Gil is in the room as I am seeing him in with thinking that he could possibly be discharged once cultures are back to the point where ID feels comfortable making recommendations. OBJECTIVE: VITAL SIGNS: Stable. He is afebrile. Cultures are negative to date. CHEST: Clear. HEART: Regular. ABDOMEN: Benign. EXTREMITIES: Left leg is undressed and shows well healing wounds. He does have a fair amount of swelling around the knee. LABORATORY DATA: Repeat creatinine this morning is 2, suggesting that this is all chronic kidney disease. IMPRESSION: 1. Osteomyelitis of the left leg with removal of hardware. 2. History of methicillin-susceptible Staphylococcus aureus abscess, cellulitis same extremity. 3. Chronic kidney disease. 4. Hypertension. 5. Benign prostatic hypertrophy. PLAN: Continue present antibiotics. ID did plan antibiotics at discharge. DINORA SANCHEZ MD DR: KUSHAL/christa JOB#: [id number] / [id number]
[2020-12-17] MEDS ORDERED: PROCHLORPERAZINE 10 MG/2 ML VIAL. IVP PRN (18:15)
[2020-12-17] MEDS ORDERED: MORPHINE SULFATE 2 MG/ML VIAL. IVP PRN (18:15)
[2020-12-17] MEDS ORDERED: fentaNYL PF VIAL 100 MCG/2 ML VIAL IVP PRN ×2 (18:15)
[2020-12-17] MEDS ORDERED: HYDROmorphone 2 MG/ML VIAL IVP PRN (18:15)
[2020-12-17] MEDS ORDERED: IV RINGERS,LACTATED 1000ML 1,000 ML IV SCH (18:15)
== END 2020-12-11 18:20 | disposition home or self-care (01) | DRG 496 ==
LOC: 4 NORTH 15:22
PROVIDERS: ADMIT Family Medicine; ATTEND Family Medicine
PROC: 0QPH04Z Removal of Internal Fixation Device from Left Tibia, Open Approach (ICD-10-PCS; principal; 2020-12-08 16:30)
PROC: 02HV33Z Insertion of Infusion Device into Superior Vena Cava, Percutaneous Approach (ICD-10-PCS; 2020-12-11)
DX: T84.623A Infection and inflammatory reaction due to internal fixation device of left tibia, initial encounter (principal); M86.262 Subacute osteomyelitis, left tibia and fibula; I12.9 Hypertensive chronic kidney disease with stage 1 through stage 4 chronic kidney disease, or unspecified chronic kidney disease; N18.9 Chronic kidney disease, unspecified; N40.1 Benign prostatic hyperplasia with lower urinary tract symptoms; Z79.2 Long term (current) use of antibiotics; Z82.49 Family history of ischemic heart disease and other diseases of the circulatory system; Z86.718 Personal history of other venous thrombosis and embolism; Z88.1 Allergy status to other antibiotic agents; Z88.8 Allergy status to other drugs, medicaments and biological substances; Y83.8 Other surgical procedures as the cause of abnormal reaction of the patient, or of later complication, without mention of misadventure at the time of the procedure; Y92.89 Other specified places as the place of occurrence of the external cause; Z20.822 Contact with and (suspected) exposure to COVID-19
CPT/HCPCS: 36415; 36569; 71045; 73590; 73718; 76000; 80053; 82550; 85025; 86140; 87071; 87075; 87426; C1880; J0692; J0878; J1100; J1335; J2250; J2370; J2405; J2704; J3010; J3490; J7120; U0003; 97116-GP; 97530-GP; 97535-GO; G0378

== ENCOUNTER → 2020-12-16 | Outpatient (CLI) | payer MEDICARE ==
[~2020-12-16] MED LIST changes: +CYAN50008 PO; -CYAN50009 PO
[2020-12-16 06:03] VITALS: BP 133/62
--- NOTE | 2020-12-16 09:41 | RAD ---
Left lower extremity venous duplex ultrasound study without comparison for left leg pain, possible DV T. Technique an findings: Real-time grayscale and color and spectral Doppler evaluation of the veins of the left lower 70s performed. The left common femoral, femoral, and popliteal veins are patent demons trating normal compressibility and augmentation of flow. There is normal color flow within the loss control engineer ior tibial and peroneal veins. Incidentally noted is bulky left inguinal adenopathy, with largest nod e measuring 4 cm x 1.4 cm, and a second node measuring 3.1 x 0.8 cm. IMPRESSION: 1. No evidence of DVT. 2. Pathologic-appearing inguinal adenopathy. Electronically signed by: Parker Gray MD (12/16/2020 9:39 AM) [id number]
== END ==
LOC: US 08:52
PROVIDERS: ATTEND Internal Medicine Nephrology
DX: I82.402 Acute embolism and thrombosis of unspecified deep veins of left lower extremity (principal); R59.0 Localized enlarged lymph nodes
CPT/HCPCS: 93971